=== PATIENT | male | born 1955 | race Caucasian/White ===

== ENCOUNTER → 2018-09-10 14:04 | Outpatient (CLI) | payer OTHER, SELFPAY ==
--- NOTE | 2018-09-10 | DI.US.S_ITS ---
PROCEDURE: US ABDOMEN LIMITED INDICATIONS: RIGHT HEPATIC CYST TECHNIQUE: Real-time focused scanning was performed of the abdomen, with image documentation. COMPARISON: [facility] Ultrasound, US, US ABDOMEN COMPLETE, 06/25/2018, 7:37. FINDINGS: Ultrasound examination of liver again shows 1.7 x 1.4 x 1.6 cm simple appearing cyst within anterior segment of right hepatic lobe, previously measures 1.6 x 1.4 x 1.5 cm in size. There is also a tiny calcification measures 3.5 mm in size in anterior inferior right hepatic lobe, previously measures 5 mm in size. No new hepatic lesion is seen. No intrahepatic or ductal dilatation. Liver is normal in size. IMPRESSION: 1. Patient's known minimally septated cyst in the anterior segment of right hepatic lobe is unchanged or minimally increased in size compared to earlier study. 2. Interval decrease in size of patient's known calcification in anterior inferior right hepatic lobe. Dictated by: Ronald Tinoco M.D. on 09/10/2018 at 15:54 Approved by: Ronald Tinoco M.D. on 09/10/2018 at 15:55
== END ==
PROVIDERS: PCP Internal Medicine; Visit Provider Internal Medicine
DX: K76.89 Other specified diseases of liver (principal)
CPT/HCPCS: 76705

== ENCOUNTER 2019-03-16 08:43 | Day surgery (SDC) | payer OTHER, SELFPAY ==
[2019-03-16 09:10] VITALS: BMI 30.4
[2019-03-16 09:14] VITALS: BP 136/85; PULSE 101; RESP 17; TEMP 36.4; O2SAT 97
[2019-03-16] MEDS: SODIUM CHLORIDE 0.9% 1,000 ML 200 ML IV (09:34)
--- NOTE | 2019-03-16 10:22 | PM.HP.1 ---
History of Present Illness Date Patient Seen: 03/16/19 Time Patient Seen: 10:22 Chief complaint: [id number] Narrative: Patient is 64 and here for a screening colonoscopy. This is his 1st exam. Patient History Medical History Arthritis (Acute) Carpal tunnel syndrome of right wrist (Acute) Fibromyalgia (Acute) GERD (gastroesophageal reflux disease) (Acute) Heart murmur (Acute) History of pneumonia (Acute) Right knee meniscal tear (Acute) Tear of meniscus of left knee (Acute) Wears glasses (Acute) Wears hearing aid in both ears (Acute) Social History household members: none Family & Social History Social History: household members none Never smoker Meds Home Medications Medication Instructions Recorded Confirmed Type acetaminophen [Tylenol Extra 3,000 mg PO DAILY 03/16/19 03/16/19 History Strength] aspirin [Aspirin Low Dose] 81 mg PO DAILY 03/16/19 03/16/19 History diclofenac sodium 75 mg PO BID 03/16/19 03/16/19 History diphenhydramine-acetaminophen 1 tab PO BEDTIME PRN 03/16/19 03/16/19 History [Tylenol PM Extra Strength] ibuprofen 2,000 mg PO DAILY 03/16/19 03/16/19 History omeprazole 40 mg PO BID 03/16/19 03/16/19 History Allergies Allergy/AdvReac Type Severity Reaction Status Date / Time amitriptyline AdvReac Mild slow Verified 03/16/19 09:17 stream, increased HR tramadol AdvReac Mild slow Verified 03/16/19 09:16 stream, increased HR desipramine AdvReac increased Verified 03/16/19 09:18 HR, sleeplessness, N/D, VINES Review of Systems Review of Systems All systems reviewed & are unremarkable except as noted in HPI and below Exam Vital Signs (past 8 hours): - 03/16/19 09:14 Temperature 97.5 F L Pulse Rate 101 H Respiratory Rate 17 Blood Pressure 136/85 Pulse Oximetry 97 Oxygen Delivery Method Room Air Narrative Exam Narrative: Pleasant cooperative patient no apparent distress. Lungs are clear to auscultation. No rales or rhonchi. Heart regular rate and rhythm no murmur gallop. Abdomen is soft nontender without mass. No obvious hernias. Patient is alert and oriented x3. Assessment & Plan Assessment & Plan narrative: The patient for a screening colonoscopy. I have discussed the procedure with them. Risks of bleeding, perforation which would necessitate major operation, failure to find remove all lesions, the potential tattoo were all discussed. All questions were answered. They wished to proceed.
--- NOTE | 2019-03-16 10:23 | PM.PREOP ---
Pre-operative Note Interval Note History & Physical reviewed/Exam performed by Physician: Yes Changes to H&P: No ASA Class (for procedural sedation): I
[2019-03-16] MEDS: fentaNYL 250 MCG/5 ML INJ IV (11:06)
[2019-03-16] MEDS: MIDAZOLAM 5 MG/5 ML VIAL IV (11:06)
--- NOTE | 2019-03-16 11:07 | PM.OP.ENDO ---
Operative Date/Time/Diagnoses Date of procedure: 03/16/19 Time of procedure: 11:07 Pre-op diagnosis: Screening exam. This is the patient's 1st colonoscopy. Post-op diagnosis: same Procedure & Clinicians Study performed: Colonoscopy Same procedure as scheduled: Yes Indications: Screening Surgeon: Peter Clark Procedure Notes SCOAP/Timeout: Performed Procedure in detail: The patient was placed in the left lateral decubitus position and underwent IV sedation directed by the surgeon consisting of fentanyl and Versed. Digital exam was unremarkable. I could not feel is prostate well.. The scope was inserted and advanced through the rectum into the sigmoid, descending, transverse, and ascending colon. No lesions were seen. The cecum was reached identified by the ileocecal valve and the appendiceal opening. The ileocecal valve was successfully cannulated. The terminal ileum was normal in appearance. The scope was gradually brought out. No Polyps were found. The scope ultimately was retroflexed in the rectum. The appearance was normal. The scope was removed and the patient tolerated the procedure well. Prep was excellent Scope withdrawal time: 6.5 minutes Sedation minutes: 22 Specimen(s): other (Normal exam) Complications: none Recommendations: Colonscopy in 10 years Follow up: as needed Disposition: PACU
[2019-03-16 11:11] VITALS: BP 120/82; PULSE 77; RESP 12; O2SAT 97
[2019-03-16 11:17] VITALS: BP 120/80; PULSE 82; RESP 12; O2SAT 96
[2019-03-16 11:20] VITALS: BP 124/84; PULSE 79; RESP 12; TEMP 36.3; O2SAT 95
[2019-03-16 11:25] VITALS: BP 112/70; PULSE 83; RESP 12; O2SAT 95
== END 2019-03-16 11:42 | disposition home or self-care (01) ==
PROVIDERS: PCP Internal Medicine; Visit Provider Specialist
PROC: 0DJD8ZZ Inspection of Lower Intestinal Tract, Via Natural or Artificial Opening Endoscopic (ICD-10-PCS; CPT 45378; principal; 2019-03-16 09:45)
DX: Z12.11 Encounter for screening for malignant neoplasm of colon (principal)
CPT/HCPCS: 45378; 99152; J2250; J3010

== ENCOUNTER → 2021-08-07 13:55 | Outpatient (CLI) | payer OTHER, SELFPAY | PROVIDERS: PCP Internal Medicine; Referring Provider Specialist; Visit Provider Specialist | DX: N40.0 Benign prostatic hyperplasia without lower urinary tract symptoms (principal); R97.20 Elevated prostate specific antigen [PSA] | CPT/HCPCS: 36415; 81002; 99214; G0103 ==

== ENCOUNTER → 2022-08-05 10:34 | Outpatient (CLI) | payer OTHER, SELFPAY ==
[2022-08-06 16:54] LABS: Prostate Specific Antigen 6.32 ng/mL (0.10-4.00)
== END ==
PROVIDERS: PCP Internal Medicine; Referring Provider Specialist; Visit Provider Specialist
DX: R97.20 Elevated prostate specific antigen [PSA] (principal)
CPT/HCPCS: 36415; 84153

== ENCOUNTER → 2023-01-02 08:45 | Outpatient (CLI) | payer OTHER, SELFPAY ==
[2023-01-05 07:47] LABS: PSA Free % 18.5 % (.); PSA, Total 5.9 ng/mL (0.0-4.0)
== END ==
PROVIDERS: PCP Internal Medicine; Referring Provider Specialist; Visit Provider Specialist
DX: R97.20 Elevated prostate specific antigen [PSA] (principal); N40.0 Benign prostatic hyperplasia without lower urinary tract symptoms
CPT/HCPCS: 36415; 84153; 84154

== ENCOUNTER → 2023-07-02 09:02 | Outpatient (CLI) | payer OTHER, SELFPAY ==
[2023-07-02 11:30] LABS: Prostate Specific Antigen 6.18 ng/mL (0.10-4.00)
== END ==
PROVIDERS: PCP Internal Medicine; Referring Provider Specialist; Visit Provider Specialist
DX: N40.0 Benign prostatic hyperplasia without lower urinary tract symptoms (principal); R97.20 Elevated prostate specific antigen [PSA]
CPT/HCPCS: 36415; 84153

== ENCOUNTER → 2023-12-22 09:18 | Outpatient (CLI) | payer OTHER, SELFPAY ==
[2023-12-24 08:22] LABS: PSA Free % 22.3 % (.); PSA, Total 4.3 ng/mL (0.0-4.0)
== END ==
PROVIDERS: PCP Internal Medicine; Referring Provider Specialist; Visit Provider Specialist
DX: R97.20 Elevated prostate specific antigen [PSA] (principal)
CPT/HCPCS: 36415; 84153; 84154

== ENCOUNTER → 2024-06-21 08:27 | Outpatient (CLI) | payer OTHER, SELFPAY | PROVIDERS: PCP Internal Medicine; Referring Provider Urology; Visit Provider Urology | DX: N40.0 Benign prostatic hyperplasia without lower urinary tract symptoms (principal); R97.20 Elevated prostate specific antigen [PSA] | CPT/HCPCS: 36415; 84153; 84154 ==

== ENCOUNTER → 2024-07-06 12:06 | Outpatient (CLI) | payer OTHER, SELFPAY ==
[2024-07-06 14:03] LABS: Estimated Glomerular Filt Rate > 60 mL/min (>60)
== END ==
PROVIDERS: PCP Internal Medicine; Referring Provider Urology; Visit Provider Urology
DX: R97.20 Elevated prostate specific antigen [PSA] (principal); N40.0 Benign prostatic hyperplasia without lower urinary tract symptoms
CPT/HCPCS: 36415; 82565

== ENCOUNTER → 2024-07-15 12:59 | Outpatient (CLI) | payer OTHER, SELFPAY ==
--- NOTE | 2024-07-15 13:01 | DI.MRI.S_ITS ---
PROCEDURE: MR PELVIS WO/W CON INDICATIONS: 69 y/o M w/ elevated PSA, please evaluate. TECHNIQUE: Coronal HASTE, axial T1 FSE with fat saturation, 3-plane nonbreath-hold T2 FSE. After the administration of contrast, dynamic axial, delayed axial and coronal VIBE or 2-D FLASH with fat saturation through the pelvis. Diffusion weighted imaging and ADC was performed. COMPARISON: [facility], CT, CT ABDOMEN PELVIS WITHOUT CONTRAST, 09/03/2022, 21:17. FINDINGS: Image quality: Diffusion weighted and dynamic contrast enhanced images are diagnostic. Prostate: Gland size is 3.5 x 4.5 x 3 cm; ellipsoid gland volume is 24.6 mL. PSA density is elevated at 0.32 Transitional zone heterogenous nodules are present, either well encapsulated or mostly encapsulated, compatible with PI-RADS 1 or 2 likely BPH nodules. Lentiform lesion at the anterior apex involving the anterior fibromuscular stroma measures 1.2 x 0.8 x 0.8 cm (5/9, 4/15). DWI score 4 (24/13). T2 score 4. DCE positive. PI-RADS 4. Due to the extent of capsular contact, micro capsular invasion is possible, although there is no measurable extraprostatic component. The seminal vesicles appear clear. Genitourinary system: Trabeculated bladder and mild wall thickening, possibly from chronic obstruction or cystitis. Bowel and peritoneum: No evidence of small bowel obstruction. No pathologic ascites Nodes and vessels: No aneurysmal vessel identified. No pathologic lymph nodes by size criteria Soft tissues: Small fat containing inguinal hernias. Possible small ganglion cyst anterior to the hip joints and involving the iliopsoas muscles. Bones: No suspicious osseous enhancing lesion IMPRESSION: PI-RADS 4 lesion in the anterior apex, involving the anterior fibromuscular stroma. If targeted biopsies are positive, extent of capsular contact raises concern for micro capsular invasion. Elevated PSA density. Gland volumes as above. No definite lymph nodes enlarged by size criteria or suspicious osseous lesions. Consider prostate PET-CT if targeted biopsies are positive. Other findings above. Dictated by: Quique Adam M.D. on 07/15/2024 at 14:25 Approved by: Quique Adam M.D. on 07/15/2024 at 14:31
== END ==
PROVIDERS: PCP Internal Medicine; Referring Provider Urology; Visit Provider Urology
DX: N42.9 Disorder of prostate, unspecified (principal); N32.89 Other specified disorders of bladder; R97.20 Elevated prostate specific antigen [PSA]; K40.90 Unilateral inguinal hernia, without obstruction or gangrene, not specified as recurrent
CPT/HCPCS: 72197; A9579

== ENCOUNTER 2024-09-23 11:45 | Emergency (ER) | payer OTHER, SELFPAY ==
[2024-09-23] VITALS (15 sets, daily range): BP systolic 97–132; BP diastolic 53–65; PULSE 69–106; RESP 15–20; TEMP 36.1–36.9; O2SAT 95–100; BMI 30.1
--- NOTE | 2024-09-23 11:44 | DI.RAD.S_ITS ---
PROCEDURE: XR CHEST 1V INDICATIONS: chest pain TECHNIQUE: One view of the chest was acquired. COMPARISON: None. FINDINGS: Surgical changes and devices: None. Lungs and pleura: Lungs are clear. No pleural effusions or pneumothorax. Mediastinum: Mediastinal contours appear normal. Heart size is normal. Bones and chest wall: No suspicious bony lesions. Overlying soft tissues appear unremarkable. IMPRESSION: No acute cardiopulmonary abnormality is seen. Dictated by: Alex Phillips M.D. on 09/23/2024 at 12:19 Approved by: Alex Phillips M.D. on 09/23/2024 at 12:19
--- NOTE | 2024-09-23 11:51 | EKG_ITS ---
[address] [address] Test Date: 2024-09-23 Pat Name: Jalen Zapata Department: Room: Gender: Male Remote Sensing Specialist: LORNA : 1955 Requested By: Order Number: [id number] Reading MD: Mario Simon Measurements Intervals Gause Rate: 73 P: 64 MN: 222 QRS: -30 QRSD: 86 T: 5 QT: 416 QTc: 458 Interpretive Statements Sinus rhythm with 1st degree AV block Left axis deviation Inferior infarct , age undetermined Electronically Signed On 09-23-2024 18:00:22 PST by Mario Simon
[2024-09-23 12:00] LABS: Add Manual Diff / Slide Review NO; Basophils Absolute Auto 0 /uL (0-100); Basophils Percent Auto 0.3 % (0-2); Eosinophils Absolute Auto 100 /uL (0-450); Eosinophils Percent Auto 0.8 % (2-4); Hematocrit 40.5 % (41-53); Hemoglobin 13.7 g/dL (13.5-17.5); Lymphocytes Absolute Auto 600 /uL (1100-4500); Lymphocytes Percent Auto 8.8 % (25-40); Mean Corpuscular HGB Conc 33.9 % (30-36); Mean Corpuscular Hemoglobin 31.1 PG (26-34); Mean Corpuscular Volume 91.9 fL (80-100); Monocytes Absolute Auto 500 /uL (0-900); Monocytes Percent Auto 6.9 % (3-14); Neutrophils Absolute Auto 5800 /uL (1500-7000); Neutrophils Percent Auto 83.2 % (50-75); Platelet Count 226 X10^3/uL (150-400); Red Blood Cell Count 4.41 X10^6/uL (4.5-5.9); Red Cell Distribution Width 13.2 % (11.6-14.8)
[2024-09-23 12:05] LABS: INR 1.1 (0.9-1.3); Prothrombin Time 12.8 SECONDS (9.4-12.5)
[2024-09-23 12:08] LABS: PTT Partial Thromboplastin Tim 28 SECONDS (25.1-36.5)
[2024-09-23 12:10] LABS: Alanine Aminotransferase 25 IU/L (<50); Albumin 4.4 g/dL (3.5-5.0); Albumin Globulin Ratio 1.6 (1.0-2.8); Alkaline Phosphatase 91 U/L (38-126); Aspartate Aminotransferase 31 IU/L (17-59); BUN Creatinine Ratio 17.2 (6-22); Bilirubin Total 0.8 mg/dL (0.2-1.3); Blood Urea Nitrogen 23 mg/dL (9-20); Calcium 9.6 mg/dL (8.4-10.2); Carbon Dioxide 24 mmol/L (22-32); Chloride 101 mmol/L (98-107); Creatine Kinase 96 U/L (55-170); Estimated Glomerular Filt Rate 57 mL/min (>60); Globulin 2.7 g/dL (1.7-4.1); Glucose 149 mg/dL (80-110); HEMOLYSIS < 15 (0-50); Lipase 86 U/L (23-300); Magnesium 1.7 mg/dL (1.6-2.3); Potassium 4.4 mmol/L (3.4-5.1); Sodium 135 mmol/L (137-145); Total Protein 7.1 g/dL (6.3-8.2)
[2024-09-23 12:21] LABS: NT-proBNP (BNP-Adult 18+) 1950 pg/mL (<125); Troponin I 0.044 ng/mL (0.01-0.034)
--- NOTE | 2024-09-23 12:21 | ED.SYNCOPE ---
HPI - Syncope General Chief Complaint: Syncope Stated Complaint: Near syncope at urlogy Time Seen by Provider: 09/23/24 12:21 Mode of arrival: EMS History of Present Illness HPI narrative: 69-year-old male history of hyperlipidemia comes into the ED from Urology via EMS for evaluation of presyncopal symptoms. According to the patient he was having a biopsy at the urology office, however during the procedure started feeling lightheaded and dizzy. He states that he has a history of this,, states that he also fasted prior to going to his procedure as instructed therefore he believes that this is what is causing his symptoms. He currently does not have any headache visual disturbances chest pain shortness breath fever chills nausea vomiting abdominal pain or any other GI/ symptoms at this time. He states that he was not having any chest pain shortness of breath prior or after the event. Related Data Home Medications Medication Instructions Recorded Confirmed famotidine 10 mg tablet (Acid 10 mg PO DAILY 01/15/23 09/23/24 Residential Therapist (famotidine)) multivitamin 1 tab PO DAILY 01/15/23 09/23/24 acetaminophen 325 mg capsule 650 mg PO Q6H PRN 01/01/24 09/23/24 atorvastatin 20 mg tablet 20 mg PO DAILY 01/01/24 09/23/24 Previous Rx's Medication Instructions Recorded levofloxacin 750 mg tablet 750 mg PO DAILY #3 tabs 09/06/24 Allergies Allergy/AdvReac Type Severity Reaction Status Date / Time amitriptyline AdvReac Mild slow Verified 09/23/24 11:46 stream, increased HR tramadol AdvReac Mild slow Verified 09/23/24 11:46 stream, increased HR naproxen AdvReac Unknown Verified 09/23/24 11:46 omeprazole AdvReac Unknown Verified 09/23/24 11:46 amlodipine AdvReac Verified 09/23/24 11:46 desipramine AdvReac increased Verified 09/23/24 11:46 HR, sleeplessness, N/D, VINES diclofenac AdvReac Verified 09/23/24 11:46 duloxetine AdvReac Verified 09/23/24 11:46 gabapentin AdvReac Verified 09/23/24 11:46 ranitidine AdvReac Verified 09/23/24 11:46 trazodone AdvReac Verified 09/23/24 11:46 Review of Systems Review of Systems Narrative: General: Denies fever, chills, weight loss HEENT: Denies headache, eye drainage, eye irritation, head trauma, sore throat, voice change Cardiovascular: Denies any chest pain, palpitations, shortness of breath, tachycardia Respiratory: Denies any shortness of breath, cough, wheeze, stridor GI/: Denies any abdominal pain, nausea, vomiting, diarrhea, bright red blood per rectum, melanotic stools, urinary frequency, urinary retention, dysuria, hematuria MSK: Denies any joint pain, muscle pains, swelling Skin: Denies any rashes, lesions, discoloration Neuro: Positive lightheadedness, denies dizziness, fainting, weakness Psych: Denies SI/HI Patient History Medical History Elevated PSA BPH loc w/o ur obs/LUTS Tear of meniscus of left knee Right knee meniscal tear Carpal tunnel syndrome of right wrist Wears hearing aid in both ears Wears glasses Fibromyalgia GERD (gastroesophageal reflux disease) Arthritis Heart murmur History of pneumonia Social History household members: none Smoking Status: Never smoker Smoking Status: Never smoker Exam Narrative Exam Narrative: General: Cooperative, comfortable, well-developed, not in acute distress HEENT: Normocephalic, atraumatic, PERRLA, normal sclera, eyelids normal, Neck: Active full range of motion, atraumatic Chest: Normal to inspection, negative crepitus, no overlying erythema ecchymosis Respiratory: Normal respiratory effort, not in acute respiratory distress, clear to auscultation bilaterally negative cough, wheeze, tachypnea, rhonchi, rales Cardiology: Regular rate rhythm negative gallop, murmur, rubs GI/: Normal to inspection, soft, nonrigid, no tenderness to palpation, exam deferred MSK: Full range of active range of motion of all 4 extremities, atraumatic Skin: No rashes lesions noted Neuro: Alert awake oriented x3, moves all 4 extremities spontaneously, cranial nerves intact, able to answer all questions appropriately follows commands appropriately, NIH of 0 Psych: Cooperative, negative suicidal or homicidal ideations Initial Vital Signs Initial Vital Signs: Vital Signs Temperature 96.9 F L 09/23/24 11:46 Pulse Rate 69 09/23/24 11:46 Respiratory Rate 15 09/23/24 11:46 Blood Pressure 106/61 09/23/24 11:46 Pulse Oximetry 100 09/23/24 11:46 Oxygen Delivery Method Room Air 09/23/24 11:46 Course Orders Ordered: ED Orders 09/23/24 11:44 XR chest 1V Stat EKG-12 Lead Stat 09/23/24 11:51 Complete Blood Count AUTO DIFF Stat Comprehensive Metabolic Panel Stat Lipase Stat Magnesium Stat NT-proBNP (BNP-Adult 18+) Stat PTT Partial Thromboplastin Emilio Stat Prothrombin Time INR Stat Troponin & CK Cardiac Panel Stat 09/23/24 14:00 Trop I [Troponin I] Routine 09/23/24 14:30 Urinalysis and Microscopic Stat 09/23/24 15:13 CT head/brain wo con Stat Discontinued Medications Sodium Chloride (Normal Saline 0.9%) 1,000 mls @ 1,000 mls/hr IV BOLUS ONE Stop: 09/23/24 13:33 Last Infusion: 09/23/24 13:41 Dose: Infused Documented By: Admin: 09/23/24 12:39 Dose: 1,000 mls/hr Documented By: ASHLEY Vital Signs Vital signs: Vital Signs - 8 hr 09/23/24 11:46 09/23/24 11:49 09/23/24 12:00 Temperature 96.9 F L Pulse Rate 69 72 75 Pulse Rate [Orthostatic Lying] Pulse Rate [Orthostatic Sitting] Pulse Rate [Orthostatic Standing] Respiratory Rate 15 Blood Pressure 106/61 Blood Pressure [Orthostatic Lying] Blood Pressure [Orthostatic Sitting] Blood Pressure [Orthostatic Standing] Pulse Oximetry 100 98 99 Oxygen Delivery Method Room Air 09/23/24 12:30 09/23/24 12:46 09/23/24 12:46 Temperature Pulse Rate 77 74 Pulse Rate [Orthostatic Lying] Pulse Rate [Orthostatic Sitting] Pulse Rate [Orthostatic Standing] Respiratory Rate 18 16 Blood Pressure 104/58 L 97/53 L Blood Pressure [Orthostatic Lying] Blood Pressure [Orthostatic Sitting] Blood Pressure [Orthostatic Standing] Pulse Oximetry 99 99 Oxygen Delivery Method Room Air Room Air 09/23/24 13:00 09/23/24 13:00 09/23/24 13:30 Temperature Pulse Rate 74 84 Pulse Rate [Orthostatic Lying] Pulse Rate [Orthostatic Sitting] Pulse Rate [Orthostatic Standing] Respiratory Rate 16 16 Blood Pressure 105/56 L Blood Pressure [Orthostatic Lying] Blood Pressure [Orthostatic Sitting] Blood Pressure [Orthostatic Standing] Pulse Oximetry 95 100 Oxygen Delivery Method Room Air Room Air 09/23/24 13:30 09/23/24 13:50 09/23/24 13:52 Temperature 98.5 F Pulse Rate 80 Pulse Rate [Orthostatic Lying] 80 Pulse Rate [Orthostatic Sitting] 95 H Pulse Rate [Orthostatic Standing] 106 H Respiratory Rate 18 Blood Pressure 130/65 Blood Pressure [Orthostatic Lying] 129/61 Blood Pressure [Orthostatic Sitting] 124/56 L Blood Pressure [Orthostatic Standing] 116/61 Pulse Oximetry 100 Oxygen Delivery Method 09/23/24 13:52 09/23/24 13:54 09/23/24 13:54 Temperature Pulse Rate 95 H Pulse Rate [Orthostatic Lying] Pulse Rate [Orthostatic Sitting] Pulse Rate [Orthostatic Standing] Respiratory Rate 20 Blood Pressure 129/61 124/56 L Blood Pressure [Orthostatic Lying] Blood Pressure [Orthostatic Sitting] Blood Pressure [Orthostatic Standing] Pulse Oximetry 100 Oxygen Delivery Method 09/23/24 13:55 09/23/24 13:55 09/23/24 14:00 Temperature Pulse Rate 106 H 88 Pulse Rate [Orthostatic Lying] Pulse Rate [Orthostatic Sitting] Pulse Rate [Orthostatic Standing] Respiratory Rate 16 19 Blood Pressure 116/62 Blood Pressure [Orthostatic Lying] Blood Pressure [Orthostatic Sitting] Blood Pressure [Orthostatic Standing] Pulse Oximetry 100 100 Oxygen Delivery Method Room Air 09/23/24 14:00 09/23/24 14:43 09/23/24 14:43 Temperature 97.9 F Pulse Rate 85 Pulse Rate [Orthostatic Lying] Pulse Rate [Orthostatic Sitting] Pulse Rate [Orthostatic Standing] Respiratory Rate 20 Blood Pressure 115/63 132/65 Blood Pressure [Orthostatic Lying] Blood Pressure [Orthostatic Sitting] Blood Pressure [Orthostatic Standing] Pulse Oximetry 99 Oxygen Delivery Method Room Air 09/23/24 15:00 09/23/24 15:00 Temperature Pulse Rate 81 Pulse Rate [Orthostatic Lying] Pulse Rate [Orthostatic Sitting] Pulse Rate [Orthostatic Standing] Respiratory Rate 17 Blood Pressure 127/64 Blood Pressure [Orthostatic Lying] Blood Pressure [Orthostatic Sitting] Blood Pressure [Orthostatic Standing] Pulse Oximetry 98 Oxygen Delivery Method Room Air MDM - Syncope Differential Diagnosis Differential diagnosis: Likely other (CVA, electrolyte abnormality, urinary tract infection) Lab Data 09/23/24 11:51 09/23/24 11:51 Labs: Lab Results 09/23/24 09/23/24 09/23/24 Range/Units 11:51 14:00 14:30 WBC 7.0 (4.5-11.0) X10^3/uL RBC 4.41 L (4.5-5.9) X10^6/uL Hgb 13.7 (13.5-17.5) g/dL Hct 40.5 L (41-53) % MCV 91.9 (80-100) fL MCH 31.1 (26-34) PG MCHC 33.9 (30-36) % RDW 13.2 (11.6-14.8) % Plt Count 226 (150-400) X10^3/uL Neut % (Auto) 83.2 H (50-75) % Lymph % (Auto) 8.8 L (25-40) % Centre % (Auto) 6.9 (3-14) % Eos % (Auto) 0.8 L (2-4) % Baso % (Auto) 0.3 (0-2) % Neut # (Auto) 5800 (0228-3616) /uL Lymph # (Auto) 600 L (1593-5053) /uL Centre # (Auto) 500 (0-900) /uL Eos # (Auto) 100 (0-450) /uL Baso # (Auto) 0 (0-100) /uL PT 12.8 H (9.4-12.5) SECONDS INR 1.1 (0.9-1.3) APTT 28 (25.1-36.5) SECONDS Sodium 135 L (137-145) mmol/L Potassium 4.4 (3.4-5.1) mmol/L Chloride 101 (98-107) mmol/L Carbon Dioxide 24 (22-32) mmol/L BUN 23 H (9-20) mg/dL Creatinine 1.34 H (0.66-1.25) mg/dL Estimated GFR 57 L (>60) mL/min BUN/Creatinine Ratio 17.2 (6-22) Glucose 149 H (80-110) mg/dL Calcium 9.6 (8.4-10.2) mg/dL Magnesium 1.7 (1.6-2.3) mg/dL Total Bilirubin 0.8 (0.2-1.3) mg/dL AST 31 (17-59) IU/L ALT 25 (<50) IU/L Alkaline Phosphatase 91 (38-126) U/L Total Creatine Kinase 96 (55-170) U/L Troponin I 0.044 H 0.045 H (0.01-0.034) ng/mL NT-Pro-B Natriuret Pep 1950 H (<125) pg/mL Total Protein 7.1 (6.3-8.2) g/dL Albumin 4.4 (3.5-5.0) g/dL Globulin 2.7 (1.7-4.1) g/dL Albumin/Globulin Ratio 1.6 (1.0-2.8) Lipase 86 (23-300) U/L Urine Color Red Urine Appearance Cloudy Urine pH 6.0 (4.5-8.0) Ur Specific [place] 1.025 (1.000-1.035) Urine Protein 2+ H (Negative) Urine Glucose (UA) Negative (Negative) g/dL Urine Ketones Trace H (NEGATIVE) Urine Occult Blood 1+ H (Negative) Urine Nitrate Negative (Negative) Urine Bilirubin Negative (NEGATIVE) Urine Urobilinogen 0.2 (0.2) E.U./dL Ur Leukocyte Esterase Negative (NEGATIVE) Urine RBC 30-100/hpf H (0-5/HPF) Urine WBC 0-1/hpf (0-5/HPF) Ur Squamous Epith Cells None seen (0-5/HPF) Urine Bacteria None seen (None) Ur Culture Indicated? Cult not indicated Vol Urine Centrifuged 10ml (spun) Imaging Data Chest x-ray: Radiologist's Impression: [address] [address] XRay Report Signed Patient: Jalen Zapata MR#: [id number] : 1955 Acct:[id number] Age/Sex: 69 / M Date of Service: 09/23/24 Loc: ED Accession Number: [id number] Procedure: XR chest 1V Ordering Provider: Clarence Reid D.O. PROCEDURE: XR CHEST 1V INDICATIONS: chest pain TECHNIQUE: One view of the chest was acquired. COMPARISON: None. FINDINGS: Surgical changes and devices: None. Lungs and pleura: Lungs are clear. No pleural effusions or pneumothorax. Mediastinum: Mediastinal contours appear normal. Heart size is normal. Bones and chest wall: No suspicious bony lesions. Overlying soft tissues appear unremarkable. IMPRESSION: No acute cardiopulmonary abnormality is seen. ECG Data Interpretation: EKG interpreted ED physician sinuses 73 beats per minute first-degree AV block noted QTC 458, normal axis, nonspecific ST changes, no STEMI MDM Narrative Medical decision making narrative: 69-year-old male history of hyperlipidemia comes into the ED from Urology via EMS for evaluation of presyncopal symptoms. According to the patient he was having a biopsy at the urology office, however during the procedure started feeling lightheaded and dizzy. He states that he has a history of this,, states that he also fasted prior to going to his procedure as instructed therefore he believes that this is what is causing his symptoms. He currently does not have any headache visual disturbances chest pain shortness breath fever chills nausea vomiting abdominal pain or any other GI/ symptoms at this time. He states that he was not having any chest pain shortness of breath prior or after the event. Patient had normal EKG , initial troponin 0.044 with repeat 0.045 patient remains completely asymptomatic no chest pain no shortness a breath. He states that whenever he has any kind of procedures he always has these ?vasovagal syncope. I informed him that I would like to repeat the troponin again, as well as obtain a CT scan of the head to rule out any other acute findings, however he states that he feels completely fine. He stated that he would rather follow up with his yardage control operator forming as well as his other specialists in an outpatient setting. Patient states that he would return if he feels any chest pain shortness breath or presyncopal syncopal symptoms. Strict return precautions were given, discussion risks benefits with the patient was given he would rather be discharged home, patient will be discharged home with outpatient follow up 1516: Call discussed with Dr. Tinoco (cardiology) states that the troponin is not significantly elevated can see these elevations after procedures such as prostate biopsy, would not recommend any interventions at this time no heparinization, states that he would be able to follow up outpatient with his yardage control operator forming in an outpatient setting. Discharge Plan Departure Patient Disposition: Home Clinical Impression: Syncope Instructions: DI for Syncope in Adults (Fainting) Activity Restrictions/Additional Instructions: Please follow up with your yardage control operator forming in the next 2 days Please read the discharge instructions sheet carefully and bring all papers to all doctor follow-up visits, as it may contain information that your doctor may want to see. Disease processes change and evolve, if your symptoms worsen or if you develop any new symptoms that are concerning to you please return for evaluation. Your evaluation today does not show any evidence of any life-threatening/serious illnesses requiring admission to the hospital or surgery. Please follow-up with your doctor for re-evaluation in approximately 1 day. Seek immediate medical attention for any worrisome symptoms. *If you do not have a primary care provider please contact the [facility] Resource line at [phone]. They will ask some questions about your medical history and help get you set up with a doctor in the community. Prescriptions: No Action levofloxacin 750 mg tablet 750 mg PO DAILY Qty: 3 0RF Rx Instructions: Take one tablet by mouth the day before the biopsy, the day of, and the day after the biopsy. famotidine [Acid Residential Therapist (famotidine)] 10 mg tablet 10 mg PO DAILY multivitamin Tablet 1 tab PO DAILY acetaminophen 325 mg capsule 650 mg PO Q6H PRN atorvastatin 20 mg tablet 20 mg PO DAILY Referrals: Benita Gomes MD [Primary Care Provider] - Stand Alone Forms: Patient Portal/API/Survey
[2024-09-23] MEDS: SODIUM CHLORIDE 0.9% 1,000 ML 1000 ML IV (12:39)
--- NOTE | 2024-09-23 14:28 | PC.NURSE ---
ambulated independent, steady gate, no assistance from staff, using personal crutches w/knee braces in place bilateral. Up to restroom to attempt to urinate post IV fluids and urology procedure on prostate this AM in urology office w/ Dr Alonso. 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 Patient urinated 100 ml of frankly bloody urine, no clots noted, and he reports it is to be expected post procedure.
[2024-09-23 14:33] LABS: Troponin I 0.045 ng/mL (0.01-0.034)
[2024-09-23 14:57] LABS: Appearance Urine UA CLOUDY; Bilirubin Urine UA NEGATIVE (NEGATIVE); Color Urine UA RED; Glucose Urine UA NEGATIVE (Negative); Ketones Urine UA TRACE (NEGATIVE); Leukocyte Esterase Urine UA NEGATIVE (NEGATIVE); Nitrite Urine UA NEGATIVE (Negative); Occult Blood Urine UA 1+ (Negative); Protein Urine UA 2+ (Negative); Specific Gravity Urine UA 1.025 (1.000-1.035); Urobilinogen Urine UA 0.2 E.U./dL (0.2)
[2024-09-23 15:06] LABS: Bacteria Urine None Seen; Culture Indicated Urine Cult Not Indicated; RBC Urine 30-100/HPF (0-5/HPF); Squamous Epithelial Cell Urine None Seen (0-5/HPF); Urine Volume 10mL (spun); WBC Urine 0-1/HPF (0-5/HPF)
== END 2024-09-23 16:00 | disposition home or self-care (01) ==
PROVIDERS: Emergency Provider Student in an Organized Health Care Education/Training Program; PCP Internal Medicine
DX: R55 Syncope and collapse (principal); E78.5 Hyperlipidemia, unspecified; R42 Dizziness and giddiness; R07.9 Chest pain, unspecified; I44.0 Atrioventricular block, first degree; R97.20 Elevated prostate specific antigen [PSA]; N40.0 Benign prostatic hyperplasia without lower urinary tract symptoms
CPT/HCPCS: 36415; 55700; 71045; 76872; 76942; 80053; 81001; 82550; 83690; 83735; 83880; 84484; 85025; 85610; 85730; 93005; 96360; 99213; 99284

== ENCOUNTER 2024-09-26 12:23 | Inpatient (IN) | payer OTHER, SELFPAY ==
[2024-09-26] VITALS (40 sets, daily range): BP systolic 87–155; BP diastolic 45–95; PULSE 69–147; RESP 10–42; TEMP 36.9–39.5; O2SAT 94–99; BMI 25.0
--- NOTE | 2024-09-26 12:29 | EKG_ITS ---
[address] [address] Test Date: 2024-09-26 Pat Name: Jalen Zapata Department: Room: Gender: Male Hel[employer]: LORNA : 1955 Requested By: Order Number: [id number] Reading MD: Mario Simon Measurements Intervals [place] Rate: 102 P: 63 SC: 200 QRS: -28 QRSD: 86 T: 3 QT: 346 QTc: 450 Interpretive Statements Sinus tachycardia with premature supraventricular complexes Low voltage QRS Septal infarct , age undetermined Electronically Signed On 09-27-2024 9:45:39 PST by Mario Simon
--- NOTE | 2024-09-26 12:30 | ED.WEAKNESS ---
HPI - Weakness General Chief complaint: Weakness Stated complaint: Weakness Time Seen by Provider: 09/26/24 12:28 History of Present Illness HPI Narrative: 69-year-old male with history of hyperlipidemia, BPH presents by EMS from home for chills, body aches, and 1 episode of stool incontinence. Three days ago patient underwent prostate biopsy with Dr. Alonso for lesion seen on MRI. After his procedure he had a syncopal episode and was evaluated in the emergency department. Patient was discharged home after an unremarkable workup. Patient states that until today he has felt in good state of health. Today he began to experience body aches, severe chills, and general unwell feeling. While shivering at home he had an episode where his bowels were uncontrolled and he decided to call 911. On arrival patient appeared pale, with rigors present. Also noted to be tachycardic and tachypneic. Related Data Home Medications Medication Instructions Recorded Confirmed famotidine 10 mg tablet (Acid 10 mg PO DAILY 01/15/23 09/23/24 Pad Extraction Tender (famotidine)) multivitamin 1 tab PO DAILY 01/15/23 09/23/24 acetaminophen 325 mg capsule 650 mg PO Q6H PRN 01/01/24 09/23/24 atorvastatin 20 mg tablet 20 mg PO DAILY 01/01/24 09/23/24 Previous Rx's Medication Instructions Recorded levofloxacin 750 mg tablet 750 mg PO DAILY #3 tabs 09/06/24 Allergies Allergy/AdvReac Type Severity Reaction Status Date / Time amitriptyline AdvReac Mild slow Verified 09/23/24 11:46 stream, increased HR tramadol AdvReac Mild slow Verified 09/23/24 11:46 stream, increased HR naproxen AdvReac Unknown Verified 09/23/24 11:46 omeprazole AdvReac Unknown Verified 09/23/24 11:46 amlodipine AdvReac Verified 09/23/24 11:46 desipramine AdvReac increased Verified 09/23/24 11:46 HR, sleeplessness, N/D, VINES diclofenac AdvReac Verified 09/23/24 11:46 duloxetine AdvReac Verified 09/23/24 11:46 gabapentin AdvReac Verified 09/23/24 11:46 ranitidine AdvReac Verified 09/23/24 11:46 trazodone AdvReac Verified 09/23/24 11:46 Patient History Medical History Elevated PSA BPH loc w/o ur obs/LUTS Tear of meniscus of left knee Right knee meniscal tear Carpal tunnel syndrome of right wrist Wears hearing aid in both ears Wears glasses Fibromyalgia GERD (gastroesophageal reflux disease) Arthritis Heart murmur History of pneumonia Social History household members: none Smoking Status: Never smoker Smoking Status: Never smoker Exam Initial Vital Signs Initial Vital Signs: Vital Signs Pulse Rate 69 09/26/24 12:30 Respiratory Rate 32 H 09/26/24 12:30 Const: Awake, alert, ill-appearing, rigors Cardiac: Tachycardia, regular rhythm RESP: Tachypnea, clear bilaterally, no wheezing GI: Soft, nontender, nondistended Rectal: [employer] present, tone intact, no perineal tenderness Skin: Warm, Dry, intact, no rashes Neuro: AO x3, CN II-XII grossly intact, moves all extremities Course Orders Ordered: ED Orders 09/26/24 11:23 CBC Auto Diff [Complete Blood Count AUTO DIFF] Stat Lactate (Lactic Acid) Stat PT [Prothrombin Time INR] Stat 09/26/24 12:29 EKG-12 Lead Stat 09/26/24 12:58 CMP [Comprehensive Metabolic Panel] Stat Procalcitonin Stat 09/26/24 13:00 Respiratory Panel (Film Array) Stat 09/26/24 13:38 Blood Culture Stat 09/26/24 14:27 UA Complete [Urinalysis and Microscopic] Stat Urine Culture Stat Sodium Chloride (Normal Saline 0.9%) 1,000 mls @ 1,000 mls/hr IV BOLUS ONE Stop: 09/26/24 15:48 Last Admin: 09/26/24 14:50 Dose: 1,000 mls/hr Documented By: DM Discontinued Medications Piperacillin Sod/Tazobactam (Sod 4.5 gm/ Sodium Chloride) 100 mls @ 200 mls/hr IV NOW ONE Stop: 09/26/24 13:01 Last Infusion: 09/26/24 14:29 Dose: Infused Documented By: Admin: 09/26/24 13:52 Dose: 200 mls/hr Documented By: [facility] Sodium Chloride (Normal Saline 0.9%) 1,000 mls @ 1,000 mls/hr IV BOLUS ONE Stop: 09/26/24 14:16 Last Infusion: 09/26/24 14:48 Dose: Infused Documented By: Admin: 09/26/24 13:28 Dose: 1,000 mls/hr Documented By: HECTOR Acetaminophen (Ofirmev) 1,000 mg in 100 mls @ 400 mls/hr IV NOW ONE Stop: 09/26/24 14:00 Last Infusion: 09/26/24 14:59 Dose: Infused Documented By: Admin: 09/26/24 14:32 Dose: 400 mls/hr Documented By: ARCHANA Vital Signs Vital signs: Vital Signs - 8 hr 09/26/24 12:30 09/26/24 12:50 09/26/24 13:00 Temperature 98.4 F Pulse Rate 69 147 H 145 H Respiratory Rate 32 H 30 H 42 H Blood Pressure Pulse Oximetry Oxygen Delivery Method Oxygen Flow Rate 09/26/24 13:14 09/26/24 13:14 09/26/24 13:15 Temperature Pulse Rate 126 H Respiratory Rate 24 Blood Pressure 139/81 155/95 H Pulse Oximetry 96 Oxygen Delivery Method Oxygen Flow Rate 2 09/26/24 13:15 09/26/24 13:30 09/26/24 13:30 Temperature Pulse Rate 125 H 119 H Respiratory Rate 25 H 16 Blood Pressure 127/64 Pulse Oximetry 95 98 Oxygen Delivery Method Nasal Cannula Nasal Cannula Oxygen Flow Rate 5 5 09/26/24 13:45 09/26/24 13:45 09/26/24 14:00 Temperature Pulse Rate 115 H Respiratory Rate 17 Blood Pressure 115/59 L 102/58 L Pulse Oximetry 98 Oxygen Delivery Method Nasal Cannula Oxygen Flow Rate 2 09/26/24 14:00 09/26/24 14:15 09/26/24 14:15 Temperature Pulse Rate 113 H 109 H Respiratory Rate 10 L 25 H Blood Pressure 111/58 L Pulse Oximetry 99 98 Oxygen Delivery Method Nasal Cannula Oxygen Flow Rate 2 09/26/24 14:30 09/26/24 14:30 09/26/24 14:42 Temperature 103.1 F H Pulse Rate 109 H 109 H Respiratory Rate 27 H 23 Blood Pressure 110/59 L Pulse Oximetry 97 97 Oxygen Delivery Method Nasal Cannula Oxygen Flow Rate 2 09/26/24 14:42 09/26/24 14:45 09/26/24 14:45 Temperature Pulse Rate 108 H Respiratory Rate 21 Blood Pressure 98/52 L 87/45 L Pulse Oximetry 94 Oxygen Delivery Method Room Air Oxygen Flow Rate 09/26/24 14:57 09/26/24 14:58 Temperature Pulse Rate 106 H Respiratory Rate 24 Blood Pressure 94/52 L Pulse Oximetry 97 Oxygen Delivery Method Nasal Cannula Oxygen Flow Rate 2 MDM - Weakness Lab Data 09/26/24 11:23 09/26/24 12:58 Labs: Lab Results 09/26/24 09/26/24 09/26/24 Range/Units 11:23 12:58 13:00 WBC 9.3 (4.5-11.0) X10^3/uL RBC 4.34 L (4.5-5.9) X10^6/uL Hgb 13.5 (13.5-17.5) g/dL Hct 40.2 L (41-53) % MCV 92.5 (80-100) fL MCH 31.1 (26-34) PG MCHC 33.7 (30-36) % RDW 13.9 (11.6-14.8) % Plt Count 155 (150-400) X10^3/uL Neut % (Auto) 97.1 H (50-75) % Lymph % (Auto) 1.6 L (25-40) % [place] % (Auto) 1.2 L (3-14) % Eos % (Auto) 0.1 L (2-4) % Baso % (Auto) 0.0 (0-2) % Neut # (Auto) 9100 H (9262-7263) /uL Lymph # (Auto) 200 L (7965-8301) /uL [place] # (Auto) 100 (0-900) /uL Eos # (Auto) 0 (0-450) /uL Baso # (Auto) 0 (0-100) /uL PT 14.5 H (9.4-12.5) SECONDS INR 1.3 (0.9-1.3) Sodium 133 L (137-145) mmol/L Potassium 3.7 (3.4-5.1) mmol/L Chloride 97 L (98-107) mmol/L Carbon Dioxide 21 L (22-32) mmol/L BUN 30 H (9-20) mg/dL Creatinine 1.39 H (0.66-1.25) mg/dL Estimated GFR 54 L (>60) mL/min BUN/Creatinine Ratio 21.6 (6-22) Glucose 119 H (80-110) mg/dL Lactate 4.5 H* (0.7-2.1) mmol/L Calcium 9.4 (8.4-10.2) mg/dL Total Bilirubin 1.3 (0.2-1.3) mg/dL AST 70 H (17-59) IU/L ALT 45 (<50) IU/L Alkaline Phosphatase 98 (38-126) U/L Total Protein 7.5 (6.3-8.2) g/dL Albumin 4.6 (3.5-5.0) g/dL Globulin 2.9 (1.7-4.1) g/dL Albumin/Globulin Ratio 1.6 (1.0-2.8) Procalcitonin 40.9 H (<0.5) ng/mL Urine Color Urine Appearance Urine pH (4.5-8.0) Ur Specific [place] (1.000-1.035) Urine Protein (Negative) Urine Glucose (UA) (Negative) g/dL Urine Ketones (NEGATIVE) Urine Occult Blood (Negative) Urine Nitrate (Negative) Urine Bilirubin (NEGATIVE) Urine Urobilinogen (0.2) E.U./dL Ur Leukocyte Esterase (NEGATIVE) Urine RBC (0-5/HPF) Urine WBC (0-5/HPF) Ur Squamous Epith Cells (0-5/HPF) Urine Bacteria (None) Ur Culture Indicated? Vol Urine Centrifuged Chlamy pneumoniae PCR Not detected (Not Detect) Adenovirus (PCR) Not detected (Not Detect) B. pertussis DNA (PCR) Not detected (Not Detect) B.parapertussis DNA PCR Not detected (Not Detecte) Coronavirus OC43 (PCR) Not detected (Not Detect) Coronavirus HKU1 (PCR) Not detected (Not Detect) Coronavirus 229E (PCR) Not detected (Not Detect) SARS-CoV-2 (PCR) Not detected (Not Detecte) Coronavirus NL63 (PCR) Not detected (Not Detect) Human Metapneumovir PCR Not detected (Not Detect) Influenza Type A (PCR) Not detected (Not Detect) Influenza Type B (PCR) Not detected (Not Detect) M. pneumoniae (PCR) Not detected (Not Detect) Parainfluenza 1 (PCR) Not detected (Not Detect) Parainfluenza 2 (PCR) Not detected (Not Detect) Parainfluenza 3 (PCR) Not detected (Not Detect) Parainfluenza 4 (PCR) Not detected (Not Detect) RSV (PCR) Not detected (Not Detect) Entero/Rhino (PCR) Not detected (Not Detect) 09/26/24 09/26/24 Range/Units 14:27 14:35 WBC (4.5-11.0) X10^3/uL RBC (4.5-5.9) X10^6/uL Hgb (13.5-17.5) g/dL Hct (41-53) % MCV (80-100) fL MCH (26-34) PG MCHC (30-36) % RDW (11.6-14.8) % Plt Count (150-400) X10^3/uL Neut % (Auto) (50-75) % Lymph % (Auto) (25-40) % [place] % (Auto) (3-14) % Eos % (Auto) (2-4) % Baso % (Auto) (0-2) % Neut # (Auto) (7600-3003) /uL Lymph # (Auto) (3692-6023) /uL [place] # (Auto) (0-900) /uL Eos # (Auto) (0-450) /uL Baso # (Auto) (0-100) /uL PT (9.4-12.5) SECONDS INR (0.9-1.3) Sodium (137-145) mmol/L Potassium (3.4-5.1) mmol/L Chloride (98-107) mmol/L Carbon Dioxide (22-32) mmol/L BUN (9-20) mg/dL Creatinine (0.66-1.25) mg/dL Estimated GFR (>60) mL/min BUN/Creatinine Ratio (6-22) Glucose (80-110) mg/dL Lactate 2.5 H (0.7-2.1) mmol/L Calcium (8.4-10.2) mg/dL Total Bilirubin (0.2-1.3) mg/dL AST (17-59) IU/L ALT (<50) IU/L Alkaline Phosphatase (38-126) U/L Total Protein (6.3-8.2) g/dL Albumin (3.5-5.0) g/dL Globulin (1.7-4.1) g/dL Albumin/Globulin Ratio (1.0-2.8) Procalcitonin (<0.5) ng/mL Urine Color Red Urine Appearance Cloudy Urine pH 5.0 (4.5-8.0) Ur Specific [place] 1.025 (1.000-1.035) Urine Protein 3+ H (Negative) Urine Glucose (UA) Negative (Negative) g/dL Urine Ketones 1+ H (NEGATIVE) Urine Occult Blood 3+ H (Negative) Urine Nitrate Positive H (Negative) Urine Bilirubin Negative (NEGATIVE) Urine Urobilinogen 2.0 H (0.2) E.U./dL Ur Leukocyte Esterase 1+ H (NEGATIVE) Urine RBC >100/hpf H (0-5/HPF) Urine WBC 10-30/hpf H (0-5/HPF) Ur Squamous Epith Cells None seen (0-5/HPF) Urine Bacteria Many (>30) H (None) Ur Culture Indicated? Specimen cultured Vol Urine Centrifuged 10ml (spun) Chlamy pneumoniae PCR (Not Detect) Adenovirus (PCR) (Not Detect) B. pertussis DNA (PCR) (Not Detect) B.parapertussis DNA PCR (Not Detecte) Coronavirus OC43 (PCR) (Not Detect) Coronavirus HKU1 (PCR) (Not Detect) Coronavirus 229E (PCR) (Not Detect) SARS-CoV-2 (PCR) (Not Detecte) Coronavirus NL63 (PCR) (Not Detect) Human Metapneumovir PCR (Not Detect) Influenza Type A (PCR) (Not Detect) Influenza Type B (PCR) (Not Detect) M. pneumoniae (PCR) (Not Detect) Parainfluenza 1 (PCR) (Not Detect) Parainfluenza 2 (PCR) (Not Detect) Parainfluenza 3 (PCR) (Not Detect) Parainfluenza 4 (PCR) (Not Detect) RSV (PCR) (Not Detect) Entero/Rhino (PCR) (Not Detect) MDM Narrative Medical decision making narrative: Ill-appearing patient with rigors, severe chills 3 days after prostate biopsy. Blood cultures, broad-spectrum antibiotics ordered for coverage. Zosyn ordered for coverage of presumed anaerobic infection. Laboratory work reviewed: WBC count 9.3, hemoglobin 13.5, platelet count 155, lactic acid 4.5 (repeat 2.5), procalcitonin 40.9, sodium 133, potassium 3.7, creatinine 1.39, normal liver enzymes. Patient appears much improved. He no longer has rigors, he is breathing comfortably, able to rest. Still mildly tachycardic, however heart rate is downtrending and he reports feeling much better than when he 1st came in. Case discussed with patient's urologist Dr. Alonso, who stated that this is an uncommon but known side effect of prostate biopsies and he will see the patient in the hospital tomorrow. Agreed with antibiotics and hospitalization. Patient informed of lab results, recommendations from urology. He is amenable to admission at this time. Discharge Plan Departure Patient Disposition: Admitted As Inpatient Clinical Impression: Sepsis, Acute UTI Prescriptions: No Action levofloxacin 750 mg tablet 750 mg PO DAILY Qty: 3 0RF Rx Instructions: Take one tablet by mouth the day before the biopsy, the day of, and the day after the biopsy. famotidine [Acid Pad Extraction Tender (famotidine)] 10 mg tablet 10 mg PO DAILY multivitamin Tablet 1 tab PO DAILY acetaminophen 325 mg capsule 650 mg PO Q6H PRN atorvastatin 20 mg tablet 20 mg PO DAILY Referrals: Benita Gomes MD [Primary Care Provider] - Admit Date/Time: 09/26/24 15:16 Admit Provider: Penelope Galeas Stand Alone Forms: Patient Portal/API/Survey
--- NOTE | 2024-09-26 12:44 | PC.NURSE ---
EKG attempted, patient is rigorous with poor lead connection. Will attempt again.
[2024-09-26 12:56] LABS: Add Manual Diff / Slide Review NO; Basophils Absolute Auto 0 /uL (0-100); Eosinophils Absolute Auto 0 /uL (0-450); Eosinophils Percent Auto 0.1 % (2-4); Hematocrit 40.2 % (41-53); Hemoglobin 13.5 g/dL (13.5-17.5); Lymphocytes Absolute Auto 200 /uL (1100-4500); Lymphocytes Percent Auto 1.6 % (25-40); Mean Corpuscular HGB Conc 33.7 % (30-36); Mean Corpuscular Hemoglobin 31.1 PG (26-34); Mean Corpuscular Volume 92.5 fL (80-100); Monocytes Absolute Auto 100 /uL (0-900); Monocytes Percent Auto 1.2 % (3-14); Neutrophils Absolute Auto 9100 /uL (1500-7000); Neutrophils Percent Auto 97.1 % (50-75); Platelet Count 155 X10^3/uL (150-400); Red Blood Cell Count 4.34 X10^6/uL (4.5-5.9); Red Cell Distribution Width 13.9 % (11.6-14.8); White Blood Cell Count 9.3 X10^3/uL (4.5-11.0)
[2024-09-26 12:57] LABS: INR 1.3 (0.9-1.3); Prothrombin Time 14.5 SECONDS (9.4-12.5)
--- NOTE | 2024-09-26 13:02 | PC.NURSE ---
Prostate biopsy with dr arteaga recently. having hematuria, vaso-vagal episodes at home and bowel incontinence. Appears unwell. Pale, rigorous, delyaed cap refill, tachycardic, tachypneic. unable to obtain accurate SPO2. probe on ear. showing 88% with inadequate pleth. placed on 2L. AAOx3. blood cultures x2. lactate and blood banded. Dr Bartlett aware and assessed at bedside during triage.
[2024-09-26 13:07] LABS: Lactate (Lactic Acid) 4.5 mmol/L (0.7-2.1)
--- NOTE | 2024-09-26 13:20 | PC.NURSE ---
second set of blood cx drawn by lab [id number]
[2024-09-26] MEDS: SODIUM CHLORIDE 0.9% 1,000 ML 1000 ML IV ×2 (13:28→14:50)
[2024-09-26 13:40] LABS: Alanine Aminotransferase 45 IU/L (<50); Albumin 4.6 g/dL (3.5-5.0); Albumin Globulin Ratio 1.6 (1.0-2.8); Alkaline Phosphatase 98 U/L (38-126); Aspartate Aminotransferase 70 IU/L (17-59); BUN Creatinine Ratio 21.6 (6-22); Bilirubin Total 1.3 mg/dL (0.2-1.3); Blood Urea Nitrogen 30 mg/dL (9-20); Calcium 9.4 mg/dL (8.4-10.2); Carbon Dioxide 21 mmol/L (22-32); Chloride 97 mmol/L (98-107); Estimated Glomerular Filt Rate 54 mL/min (>60); Globulin 2.9 g/dL (1.7-4.1); Glucose 119 mg/dL (80-110); HEMOLYSIS 23 (0-50); Potassium 3.7 mmol/L (3.4-5.1); Sodium 133 mmol/L (137-145); Total Protein 7.5 g/dL (6.3-8.2)
[2024-09-26] MEDS: PIPERACILLIN/TAZO 4.5 GM in SODIUM CHLORIDE 0.9% 100 ML IV (13:52)
[2024-09-26 13:56] LABS: Procalcitonin 40.9 ng/mL (<0.5)
[2024-09-26 14:19] LABS: Adenovirus Not Detected (Not Detect); B. parapertussis Not Detected (Not Detecte); Bordetella pertussis Not Detected (Not Detect); Chlamydophila pneumoniae Not Detected (Not Detect); Coronavirus 229E Not Detected (Not Detect); Coronavirus HKU1 Not Detected (Not Detect); Coronavirus NL 63 Not Detected (Not Detect); Coronavirus OC43 Not Detected (Not Detect); Human Metapneumovirus Not Detected (Not Detect); Human Rhinovirus/Enterovirus Not Detected (Not Detect); Influenza A Not Detected (Not Detect); Influenza B Not Detected (Not Detect); Mycoplasma pneumoniae Not Detected (Not Detect); Parainfluenza Virus 1 Not Detected (Not Detect); Parainfluenza Virus 2 Not Detected (Not Detect); Parainfluenza Virus 3 Not Detected (Not Detect); Parainfluenza Virus 4 Not Detected (Not Detect); Respiratory Syncytial Virus Not Detected (Not Detect); SARS- CoV-2 Not Detected (Not Detecte)
[2024-09-26 14:21] LABS: Reflexed Lactate in 2 Hours Y
[2024-09-26] MEDS: ACETAMINOPHEN IV 1,000 MG/100 ML VIAL 400 MG IV (14:32)
[2024-09-26 14:46] LABS: Appearance Urine UA CLOUDY; Bilirubin Urine UA NEGATIVE (NEGATIVE); Color Urine UA RED; Glucose Urine UA NEGATIVE (Negative); Ketones Urine UA 1+ (NEGATIVE); Leukocyte Esterase Urine UA 1+ (NEGATIVE); Nitrite Urine UA POSITIVE (Negative); Occult Blood Urine UA 3+ (Negative); Protein Urine UA 3+ (Negative); Specific Gravity Urine UA 1.025 (1.000-1.035)
[2024-09-26 14:49] LABS: Bacteria Urine Many (>30); Culture Indicated Urine Specimen Cultured; RBC Urine >100/HPF (0-5/HPF); Squamous Epithelial Cell Urine None Seen (0-5/HPF); Urine Volume 10mL (spun); WBC Urine 10-30/HPF (0-5/HPF)
[2024-09-26 14:54] LABS: Lactate 2HR (Lactic Acid Rflx) 2.5 mmol/L (0.7-2.1)
[2024-09-26] MEDS: cefTRIAXone 1,000 MG in SODIUM CHLORIDE 0.9% 100 ML 200 MG IV (16:05)
--- NOTE | 2024-09-26 18:57 | PC.NURSE ---
pt admitted to room 205 from ED, alert and oriented x4, CC pt had BX of prostate on now here febrile, and incont of stool several times a day elevated labs noted bed, call light within reach friend here, up to BR with crutches and sba
[2024-09-26] MEDS: SODIUM CHLORIDE 0.9% 1,000 ML 100 ML IV (20:14)
--- NOTE | 2024-09-26 20:44 | PM.HP.1 ---
History of Present Illness History of Present Illness Date Patient Seen: 09/26/24 Time Patient Seen: 20:00 Chief complaint: Weakness Narrative: 69 y/o with PMH of enlarged prostate and prostate biopsy done 3 days ago, presented to ED with generalized weakness, fever, chills and evidence of UTI, MARIA ELENA and sepsis. Treated with IVFs and antibiotic in the ED and admitted with borderline hypotension and tachycardia. Denies abdominal, suprapubic or flank pain. Without dysuria and with small amount of expected hematuria. Had one episode of diarrhea before his arrival. [facility] Medical History (Updated 09/26/24 @ 22:01 by Bebeto Arellano MD) Elevated PSA BPH loc w/o ur obs/LUTS Tear of meniscus of left knee Right knee meniscal tear Carpal tunnel syndrome of right wrist Wears hearing aid in both ears Wears glasses Fibromyalgia GERD (gastroesophageal reflux disease) Arthritis Heart murmur History of pneumonia Social History household members: none Smoking Status: Never smoker alcohol intake: current Meds Home Medications and Allergies Home Medications Medication Instructions Recorded Confirmed Type famotidine 10 mg tablet (Acid 40 mg PO BID 01/15/23 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)) multivitamin 1 tab PO DAILY 01/15/23 09/26/24 History acetaminophen 325 mg capsule 650 mg PO Q6H PRN Pain (Scale 01/01/24 09/26/24 History Score 4-6) atorvastatin 20 mg tablet 20 mg PO DAILY 01/01/24 09/26/24 History Allergies Allergy/AdvReac Type Severity Reaction Status Date / Time amitriptyline AdvReac Mild slow Verified 09/23/24 11:46 stream, increased HR tramadol AdvReac Mild slow Verified 09/23/24 11:46 stream, increased HR naproxen AdvReac Unknown Verified 09/23/24 11:46 omeprazole AdvReac Unknown Verified 09/23/24 11:46 amlodipine AdvReac Verified 09/23/24 11:46 desipramine AdvReac increased Verified 09/23/24 11:46 HR, sleeplessness, N/D, VINES diclofenac AdvReac Verified 09/23/24 11:46 duloxetine AdvReac Verified 09/23/24 11:46 gabapentin AdvReac Verified 09/23/24 11:46 ranitidine AdvReac Verified 09/23/24 11:46 trazodone AdvReac Verified 09/23/24 11:46 Review of Systems Constitutional Comments: fever, chills, generalized weakness Cardiovascular Comments: w/o chest pain Respiratory Comments: w/o cough Gastrointestinal Comments: one episode of diarrhea earlier today Genitourinary Comments: w/o dysuria, flank or suprapubic pain ongoing hematuria - since the biopsy Hematologic/Lymphatic Comments: w/o melena or blood in the stool Exam Vital Signs (past 8 hours): - 09/26/24 12:50 09/26/24 13:00 09/26/24 13:14 Temperature 98.4 F Pulse Rate 147 H 145 H Respiratory Rate 30 H 42 H Blood Pressure 139/81 Pulse Oximetry Oxygen Delivery Method Oxygen Flow Rate Fraction of Inspired Oxygen 09/26/24 13:14 09/26/24 13:15 09/26/24 13:15 Temperature Pulse Rate 126 H 125 H Respiratory Rate 24 25 H Blood Pressure 155/95 H Pulse Oximetry 96 95 Oxygen Delivery Method Nasal Cannula Oxygen Flow Rate 2 5 Fraction of Inspired Oxygen 09/26/24 13:30 09/26/24 13:30 09/26/24 13:45 Temperature Pulse Rate 119 H Respiratory Rate 16 Blood Pressure 127/64 115/59 L Pulse Oximetry 98 Oxygen Delivery Method Nasal Cannula Oxygen Flow Rate 5 Fraction of Inspired Oxygen 09/26/24 13:45 09/26/24 14:00 09/26/24 14:00 Temperature Pulse Rate 115 H 113 H Respiratory Rate 17 10 L Blood Pressure 102/58 L Pulse Oximetry 98 99 Oxygen Delivery Method Nasal Cannula Oxygen Flow Rate 2 Fraction of Inspired Oxygen 09/26/24 14:15 09/26/24 14:15 09/26/24 14:30 Temperature Pulse Rate 109 H Respiratory Rate 25 H Blood Pressure 111/58 L 110/59 L Pulse Oximetry 98 Oxygen Delivery Method Nasal Cannula Oxygen Flow Rate 2 Fraction of Inspired Oxygen 09/26/24 14:30 09/26/24 14:42 09/26/24 14:42 Temperature 103.1 F H Pulse Rate 109 H 109 H Respiratory Rate 27 H 23 Blood Pressure 98/52 L Pulse Oximetry 97 97 Oxygen Delivery Method Nasal Cannula Oxygen Flow Rate 2 Fraction of Inspired Oxygen 09/26/24 14:45 09/26/24 14:45 09/26/24 14:57 Temperature Pulse Rate 108 H 106 H Respiratory Rate 21 24 Blood Pressure 87/45 L Pulse Oximetry 94 97 Oxygen Delivery Method Room Air Nasal Cannula Oxygen Flow Rate 2 Fraction of Inspired Oxygen 09/26/24 14:58 09/26/24 14:58 09/26/24 15:00 Temperature Pulse Rate 104 H 104 H Respiratory Rate 26 H Blood Pressure 94/52 L Pulse Oximetry 97 96 Oxygen Delivery Method Room Air Oxygen Flow Rate Fraction of Inspired Oxygen 09/26/24 15:00 09/26/24 15:15 09/26/24 15:16 Temperature Pulse Rate 100 H Respiratory Rate 15 Blood Pressure 94/51 L 94/52 L Pulse Oximetry 96 Oxygen Delivery Method Oxygen Flow Rate Fraction of Inspired Oxygen 09/26/24 15:16 09/26/24 15:18 09/26/24 15:18 Temperature Pulse Rate 100 H 100 H Respiratory Rate 23 20 Blood Pressure 94/55 L Pulse Oximetry 95 96 Oxygen Delivery Method Nasal Cannula Oxygen Flow Rate 2 Fraction of Inspired Oxygen 09/26/24 15:20 09/26/24 15:20 09/26/24 15:25 Temperature Pulse Rate 99 H Respiratory Rate 22 Blood Pressure 92/55 L 94/55 L Pulse Oximetry 96 Oxygen Delivery Method Nasal Cannula Oxygen Flow Rate 2 Fraction of Inspired Oxygen 09/26/24 15:25 09/26/24 15:30 09/26/24 15:30 Temperature Pulse Rate 99 H 100 H Respiratory Rate 22 24 Blood Pressure 92/53 L Pulse Oximetry 96 96 Oxygen Delivery Method Oxygen Flow Rate Fraction of Inspired Oxygen 09/26/24 15:35 09/26/24 15:35 09/26/24 15:40 Temperature Pulse Rate 99 H Respiratory Rate 25 H Blood Pressure 93/52 L 91/51 L Pulse Oximetry 97 Oxygen Delivery Method Oxygen Flow Rate Fraction of Inspired Oxygen 09/26/24 15:40 09/26/24 15:45 09/26/24 15:45 Temperature Pulse Rate 97 H 97 H Respiratory Rate 20 22 Blood Pressure 96/53 L Pulse Oximetry 97 96 Oxygen Delivery Method Oxygen Flow Rate Fraction of Inspired Oxygen 09/26/24 15:50 09/26/24 15:50 09/26/24 15:55 Temperature Pulse Rate 97 H 97 H Respiratory Rate 21 24 Blood Pressure 103/56 L Pulse Oximetry 97 97 Oxygen Delivery Method Nasal Cannula Oxygen Flow Rate 2 Fraction of Inspired Oxygen 09/26/24 15:55 09/26/24 16:00 09/26/24 16:00 Temperature Pulse Rate 96 H Respiratory Rate 20 Blood Pressure 97/53 L 96/52 L Pulse Oximetry 96 Oxygen Delivery Method Oxygen Flow Rate Fraction of Inspired Oxygen 09/26/24 16:05 09/26/24 16:05 09/26/24 16:10 Temperature Pulse Rate 96 H Respiratory Rate 26 H Blood Pressure 93/55 L 93/55 L Pulse Oximetry 97 Oxygen Delivery Method Nasal Cannula Oxygen Flow Rate 2 Fraction of Inspired Oxygen 09/26/24 16:10 09/26/24 16:15 09/26/24 16:15 Temperature Pulse Rate 94 H 92 H Respiratory Rate 21 23 Blood Pressure 95/54 L Pulse Oximetry 97 97 Oxygen Delivery Method Nasal Cannula Nasal Cannula Oxygen Flow Rate 2 2 Fraction of Inspired Oxygen 09/26/24 16:20 09/26/24 16:20 09/26/24 16:25 Temperature Pulse Rate 91 H Respiratory Rate 19 Blood Pressure 102/58 L 96/55 L Pulse Oximetry 96 Oxygen Delivery Method Nasal Cannula Oxygen Flow Rate 2 Fraction of Inspired Oxygen 09/26/24 16:25 09/26/24 16:30 09/26/24 16:30 Temperature Pulse Rate 91 H 92 H Respiratory Rate 20 20 Blood Pressure 99/56 L Pulse Oximetry 97 97 Oxygen Delivery Method Nasal Cannula Nasal Cannula Oxygen Flow Rate 2 2 Fraction of Inspired Oxygen 09/26/24 16:35 09/26/24 16:35 09/26/24 16:40 Temperature Pulse Rate 91 H 91 H Respiratory Rate 19 25 H Blood Pressure 102/57 L Pulse Oximetry 97 97 Oxygen Delivery Method Nasal Cannula Nasal Cannula Oxygen Flow Rate 2 2 Fraction of Inspired Oxygen 09/26/24 16:40 09/26/24 17:20 09/26/24 19:00 Temperature 98.7 F 99.1 F Pulse Rate 94 H 82 Respiratory Rate 20 20 Blood Pressure 105/59 L 102/63 96/58 L Pulse Oximetry 98 99 Oxygen Delivery Method Oxygen Flow Rate 2 1.5 Fraction of Inspired Oxygen 09/26/24 19:24 Temperature Pulse Rate 101 H Respiratory Rate 18 Blood Pressure Pulse Oximetry 98 Oxygen Delivery Method Nasal Cannula Oxygen Flow Rate 1.5 Fraction of Inspired Oxygen 26 Fraction of Inspired Oxygen 26 SaO2/FiO2 Ratio 376 Oxygen Delivery Method Nasal Cannula Oxygen Flow Rate 1.5 Const Other: in no distress, family at bedside HENDE Other: normocephalic Resp Other: normal respiratory effort Cardio Other: RRR GI Other: w/o abdominal distension or tenderness Skin Other: w/o rashes Extrem Other: w/o edema Psych Other: lucid, normal mood Objective ECG Impression: Sinus tachycardia 102 Labs 09/26/24 11:23 09/26/24 12:58 Labs: Laboratory Results - last 24 hr 09/26/24 09/26/24 09/26/24 11:23 12:58 13:00 WBC 9.3 RBC 4.34 L Hgb 13.5 Hct 40.2 L MCV 92.5 MCH 31.1 MCHC 33.7 RDW 13.9 Plt Count 155 Neut % (Auto) 97.1 H Lymph % (Auto) 1.6 L [place] % (Auto) 1.2 L Eos % (Auto) 0.1 L Baso % (Auto) 0.0 Neut # (Auto) 9100 H Lymph # (Auto) 200 L [place] # (Auto) 100 Eos # (Auto) 0 Baso # (Auto) 0 PT 14.5 H INR 1.3 Sodium 133 L Potassium 3.7 Chloride 97 L Carbon Dioxide 21 L BUN 30 H Creatinine 1.39 H Estimated GFR 54 L BUN/Creatinine Ratio 21.6 Glucose 119 H Lactate 4.5 H* Calcium 9.4 Total Bilirubin 1.3 AST 70 H ALT 45 Alkaline Phosphatase 98 Total Protein 7.5 Albumin 4.6 Globulin 2.9 Albumin/Globulin Ratio 1.6 Procalcitonin 40.9 H Urine Color Urine Appearance Urine pH Ur Specific [place] Urine Protein Urine Glucose (UA) Urine Ketones Urine Occult Blood Urine Nitrate Urine Bilirubin Urine Urobilinogen Ur Leukocyte Esterase Urine RBC Urine WBC Ur Squamous Epith Cells Urine Bacteria Ur Culture Indicated? Vol Urine Centrifuged Chlamy pneumoniae PCR Not detected Adenovirus (PCR) Not detected B. pertussis DNA (PCR) Not detected B.parapertussis DNA PCR Not detected Coronavirus OC43 (PCR) Not detected Coronavirus HKU1 (PCR) Not detected Coronavirus 229E (PCR) Not detected SARS-CoV-2 (PCR) Not detected Coronavirus NL63 (PCR) Not detected Human Metapneumovir PCR Not detected Influenza Type A (PCR) Not detected Influenza Type B (PCR) Not detected M. pneumoniae (PCR) Not detected Parainfluenza 1 (PCR) Not detected Parainfluenza 2 (PCR) Not detected Parainfluenza 3 (PCR) Not detected Parainfluenza 4 (PCR) Not detected RSV (PCR) Not detected Entero/Rhino (PCR) Not detected 09/26/24 09/26/24 14:27 14:35 WBC RBC Hgb Hct MCV MCH MCHC RDW Plt Count Neut % (Auto) Lymph % (Auto) [place] % (Auto) Eos % (Auto) Baso % (Auto) Neut # (Auto) Lymph # (Auto) [place] # (Auto) Eos # (Auto) Baso # (Auto) PT INR Sodium Potassium Chloride Carbon Dioxide BUN Creatinine Estimated GFR BUN/Creatinine Ratio Glucose Lactate 2.5 H Calcium Total Bilirubin AST ALT Alkaline Phosphatase Total Protein Albumin Globulin Albumin/Globulin Ratio Procalcitonin Urine Color Red Urine Appearance Cloudy Urine pH 5.0 Ur Specific [place] 1.025 Urine Protein 3+ H Urine Glucose (UA) Negative Urine Ketones 1+ H Urine Occult Blood 3+ H Urine Nitrate Positive H Urine Bilirubin Negative Urine Urobilinogen 2.0 H Ur Leukocyte Esterase 1+ H Urine RBC >100/hpf H Urine WBC 10-30/hpf H Ur Squamous Epith Cells None seen Urine Bacteria Many (>30) H Ur Culture Indicated? Specimen cultured Vol Urine Centrifuged 10ml (spun) Chlamy pneumoniae PCR Adenovirus (PCR) B. pertussis DNA (PCR) B.parapertussis DNA PCR Coronavirus OC43 (PCR) Coronavirus HKU1 (PCR) Coronavirus 229E (PCR) SARS-CoV-2 (PCR) Coronavirus NL63 (PCR) Human Metapneumovir PCR Influenza Type A (PCR) Influenza Type B (PCR) M. pneumoniae (PCR) Parainfluenza 1 (PCR) Parainfluenza 2 (PCR) Parainfluenza 3 (PCR) Parainfluenza 4 (PCR) RSV (PCR) Entero/Rhino (PCR) Assessment & Plan Assessment and plan (1) Acute UTI: Status: Acute (2) Sepsis: Status: Acute (3) Enlarged prostate: Status: Acute (4) GERD (gastroesophageal reflux disease): Status: Acute (5) HLD (hyperlipidemia): Status: Acute Assessment & Plan narrative: UTI / Sepsis - Tien, IVFs - urology will consult in am - hall monitor Enlarged prostate - had biopsy 3 days ago - urology follow up - does not retain - ongoing, expected mild hematuria GERD - Pepcid HLD - statin at home DVT prophylaxis - SCDs Time-Based Coding :: [TOTAL MINUTES] spent with patient and on the chart (including review of chart, obtaining history, exam, reviewing outside data, placing orders, documenting exam and treatment plan, and counseling patient) on [DATE]. Quality VTE Deep Vein Thrombosis/Pulmonary Embolism Present on Admission: No
[2024-09-26] MEDS: FAMOTIDINE 20 MG TABLET 40 MG PO (21:05)
[2024-09-26 23:31] LABS: Acinetobacter calcoa-baumannii Not Detected (Not Detect); Bacteroides fragilis Not Detected (Not Detect); CTX-M Resistance Not Detected (Not Detect); Candida albicans Not Detected (Not Detect); Candida auris Not Detected (Not Detect); Candida glabrata Not Detected (Not Detect); Candida krusei Not Detected (Not Detect); Candida parapsilosis Not Detected (Not Detect); Candida tropicalis Not Detected (Not Detect); Cryptococcus neoformans/gatti Not Detected (Not Detect); Enterobacter cloacae complex Not Detected (Not Detect); Enterobacterales Detected (Not Detect); Enterococcus faecalis Not Detected (Not Detect); Enterococcus faecium Not Detected (Not Detect); Haemophilus influenzae Not Detected (Not Detect); IMP Resistance Not Detected (Not Detect); KPC Resistance Not Detected (Not Detect); Klebsiella aerogenes Not Detected (Not Detect); Listeria monocytogenes Not Detected (Not Detect); NDM Resistance Not Detected (Not Detect); Neisseria meningitidis Not Detected (Not Detect); OXA-48-like Resistance Not Detected (Not Detect); Proteus species Not Detected (Not Detect); Pseudomonas aeruginosa Not Detected (Not Detect); Salmonella species Not Detected (Not Detect); Serratia marcescens Not Detected (Not Detect); Staphylococcus epidermidis Not Detected (Not Detect); Staphylococcus lugdunensis Not Detected (Not Detect); Staphylococcus species Not Detected (Not Detect); Stenotrophomonas maltophilia Not Detected (Not Detect); Streptococcus agalactiae (Gr B Not Detected (Not Detect); Streptococcus pneumonia Not Detected (Not Detect); Streptococcus pyogenes (Gr A) Not Detected (Not Detect); Streptococcus species Not Detected (Not Detect); VIM Resistance Not Detected (Not Detect); mcr-1 Resistance Not Detected (Not Detect)
[2024-09-27 03:00] VITALS: BP 102/63; PULSE 88; RESP 18; TEMP 37.4; O2SAT 98
[2024-09-27 05:52] LABS: BUN Creatinine Ratio 25.7 (6-22); Blood Urea Nitrogen 28 mg/dL (9-20); Carbon Dioxide 23 mmol/L (22-32); Chloride 101 mmol/L (98-107); Estimated Glomerular Filt Rate > 60 mL/min (>60); Glucose 95 mg/dL (80-110); HEMOLYSIS < 15 (0-50); Potassium 3.4 mmol/L (3.4-5.1); Sodium 132 mmol/L (137-145)
[2024-09-27 06:04] LABS: Add Manual Diff / Slide Review NO; Basophils Absolute Auto 0 /uL (0-100); Basophils Percent Auto 0.6 % (0-2); Eosinophils Absolute Auto 0 /uL (0-450); Eosinophils Percent Auto 0.6 % (2-4); Hematocrit 41.5 % (41-53); Hemoglobin 14.1 g/dL (13.5-17.5); Lymphocytes Absolute Auto 200 /uL (1100-4500); Lymphocytes Percent Auto 4.3 % (25-40); Mean Corpuscular HGB Conc 33.9 % (30-36); Mean Corpuscular Volume 91.6 fL (80-100); Monocytes Absolute Auto 400 /uL (0-900); Monocytes Percent Auto 6.2 % (3-14); Neutrophils Absolute Auto 5100 /uL (1500-7000); Neutrophils Percent Auto 88.3 % (50-75); Platelet Count 68 X10^3/uL (150-400); Red Blood Cell Count 4.53 X10^6/uL (4.5-5.9); Red Cell Distribution Width 13.7 % (11.6-14.8); White Blood Cell Count 5.7 X10^3/uL (4.5-11.0)
[2024-09-27] MEDS: SODIUM CHLORIDE 0.9% 1,000 ML 100 ML IV ×2 (06:28→17:32)
[2024-09-27 07:00] VITALS: BP 106/61; PULSE 91; RESP 14; TEMP 37.3; O2SAT 97
--- NOTE | 2024-09-27 07:26 | P.PN_ITS ---
Subjective Subjective Interval history: From night doctor: 69 y/o with PMH of enlarged prostate and prostate biopsy done 3 days ago, presented to ED with generalized weakness, fever, chills and evidence of UTI, MARIA ELENA and sepsis. Treated with IVFs and antibiotic in the ED and admitted with borderline hypotension and tachycardia. Denies abdominal, suprapubic or flank pain. Without dysuria and with small amount of expected hematuria. Had one episode of diarrhea before his arrival. S: Feels much better today, less pressure in his bladder, less hematuria. He was not shaking anymore. He does have some generalized pain in his upper thighs bilaterally. He denies chest pain or dyspnea. His troponin was elevated to 3 this morning, he relates a recent admission to the hospital and which he had a minor heart attack and does not believe he had a angiogram. This admission was also complicated by acute kidney injury. He lives locally, and is a . Blood cx positive: 2/2 GNB. Exam Vital Signs (past 8 hours): - 09/26/24 23:40 09/27/24 03:00 Temperature 99.4 F Pulse Rate 88 Respiratory Rate 18 Blood Pressure 99/58 L 102/63 Pulse Oximetry 98 Oxygen Flow Rate 0 Fraction of Inspired Oxygen 26 SaO2/FiO2 Ratio 376 Oxygen Delivery Method Nasal Cannula Oxygen Flow Rate 0 Narrative Exam Narrative: NAD, alert and oriented. Fluent speech. Lungs are clear, normal rate and effort. Heart is regular, no murmur gallop or rub. Abdomen is soft, non distended. Extremities are free of edema. Objective Imaging Chest x-ray: Radiologist's impression: No acute cardiopulmonary abnormality is seen. Labs 09/27/24 05:27 09/27/24 05:27 Labs: Laboratory Results - last 24 hr 09/26/24 09/26/24 09/26/24 11:23 12:58 13:00 WBC 9.3 RBC 4.34 L Hgb 13.5 Hct 40.2 L MCV 92.5 MCH 31.1 MCHC 33.7 RDW 13.9 Plt Count 155 Neut % (Auto) 97.1 H Lymph % (Auto) 1.6 L [place] % (Auto) 1.2 L Eos % (Auto) 0.1 L Baso % (Auto) 0.0 Neut # (Auto) 9100 H Lymph # (Auto) 200 L [place] # (Auto) 100 Eos # (Auto) 0 Baso # (Auto) 0 PT 14.5 H INR 1.3 Sodium 133 L Potassium 3.7 Chloride 97 L Carbon Dioxide 21 L BUN 30 H Creatinine 1.39 H Estimated GFR 54 L BUN/Creatinine Ratio 21.6 Glucose 119 H Lactate 4.5 H* Calcium 9.4 Total Bilirubin 1.3 AST 70 H ALT 45 Alkaline Phosphatase 98 Total Protein 7.5 Albumin 4.6 Globulin 2.9 Albumin/Globulin Ratio 1.6 Procalcitonin 40.9 H Urine Color Urine Appearance Urine pH Ur Specific [place] Urine Protein Urine Glucose (UA) Urine Ketones Urine Occult Blood Urine Nitrate Urine Bilirubin Urine Urobilinogen Ur Leukocyte Esterase Urine RBC Urine WBC Ur Squamous Epith Cells Urine Bacteria Ur Culture Indicated? Vol Urine Centrifuged A.calcoaceticus-baumannii cmplx PCR Chlamy pneumoniae PCR Not detected Adenovirus (PCR) Not detected Bacteroides fragilis B. pertussis DNA (PCR) Not detected B.parapertussis DNA PCR Not detected Shameka albicans (PCR) Shameka auris (PCR) C. glabrata (PCR) C. krusei (PCR) C. parapsilosis (PCR) C. tropicalis (PCR) Coronavirus OC43 (PCR) Not detected Coronavirus HKU1 (PCR) Not detected Coronavirus 229E (PCR) Not detected SARS-CoV-2 (PCR) Not detected Coronavirus NL63 (PCR) Not detected C. neoform/gattii (PCR) Enterobacterales (PCR) E. cloacae complex PCR Enterococc faecalis PCR Enterococc faecium PCR E. coli (PCR) H. influenzae (PCR) Human Metapneumovir PCR Not detected Influenza Type A (PCR) Not detected Influenza Type B (PCR) Not detected Klebsiella aerogenes (PCR) Klebsiella oxytoca PCR Klebsiella pneumoniae List. monocytogenes PCR M. pneumoniae (PCR) Not detected N. meningitidis (PCR) Parainfluenza 1 (PCR) Not detected Parainfluenza 2 (PCR) Not detected Parainfluenza 3 (PCR) Not detected Parainfluenza 4 (PCR) Not detected Proteus species (PCR) RSV (PCR) Not detected Entero/Rhino (PCR) Not detected Salmonella spp. (PCR) Serratia marcescens PCR Staphylococcus sp PCR Staph aureus (PCR) mecA/C & MREJ Resist Gene mecA/C-Methicil Resis Gene mcr-1 Colistin Res Gene PCR Staph epidermidis (PCR) Staph lugdunensis PCR S. maltophilia (PCR) Streptococcus sp PCR Group A Strep (PCR) Strep agalactiae (PCR) Strep pneumoniae (PCR) P. aeruginosa (PCR) Tha/B-Vanco Res Genes blaIMP Car res Gene PCR KPC-Carbap Res Gene PCR blaNDM Car Res Gene PCR OXA-48 Carbapenem Resis Gene (PCR) blaVIM Car Res Gene PCR CTX-M Gene Resistance (PCR) 09/26/24 09/26/24 09/26/24 13:10 14:27 14:35 WBC RBC Hgb Hct MCV MCH MCHC RDW Plt Count Neut % (Auto) Lymph % (Auto) [place] % (Auto) Eos % (Auto) Baso % (Auto) Neut # (Auto) Lymph # (Auto) [place] # (Auto) Eos # (Auto) Baso # (Auto) PT INR Sodium Potassium Chloride Carbon Dioxide BUN Creatinine Estimated GFR BUN/Creatinine Ratio Glucose Lactate 2.5 H Calcium Total Bilirubin AST ALT Alkaline Phosphatase Total Protein Albumin Globulin Albumin/Globulin Ratio Procalcitonin Urine Color Red Urine Appearance Cloudy Urine pH 5.0 Ur Specific [place] 1.025 Urine Protein 3+ H Urine Glucose (UA) Negative Urine Ketones 1+ H Urine Occult Blood 3+ H Urine Nitrate Positive H Urine Bilirubin Negative Urine Urobilinogen 2.0 H Ur Leukocyte Esterase 1+ H Urine RBC >100/hpf H Urine WBC 10-30/hpf H Ur Squamous Epith Cells None seen Urine Bacteria Many (>30) H Ur Culture Indicated? Specimen cultured Vol Urine Centrifuged 10ml (spun) A.calcoaceticus-baumannii cmplx PCR Not detected Chlamy pneumoniae PCR Adenovirus (PCR) Bacteroides fragilis Not detected B. pertussis DNA (PCR) B.parapertussis DNA PCR Shameka albicans (PCR) Not detected Shameka auris (PCR) Not detected C. glabrata (PCR) Not detected C. krusei (PCR) Not detected C. parapsilosis (PCR) Not detected C. tropicalis (PCR) Not detected Coronavirus OC43 (PCR) Coronavirus HKU1 (PCR) Coronavirus 229E (PCR) SARS-CoV-2 (PCR) Coronavirus NL63 (PCR) C. neoform/gattii (PCR) Not detected Enterobacterales (PCR) Detected E. cloacae complex PCR Not detected Enterococc faecalis PCR Not detected Enterococc faecium PCR Not detected E. coli (PCR) Detected H. influenzae (PCR) Not detected Human Metapneumovir PCR Influenza Type A (PCR) Influenza Type B (PCR) Klebsiella aerogenes (PCR) Not detected Klebsiella oxytoca PCR Not detected Klebsiella pneumoniae Not detected List. monocytogenes PCR Not detected M. pneumoniae (PCR) N. meningitidis (PCR) Not detected Parainfluenza 1 (PCR) Parainfluenza 2 (PCR) Parainfluenza 3 (PCR) Parainfluenza 4 (PCR) Proteus species (PCR) Not detected RSV (PCR) Entero/Rhino (PCR) Salmonella spp. (PCR) Not detected Serratia marcescens PCR Not detected Staphylococcus sp PCR Not detected Staph aureus (PCR) Not detected mecA/C & MREJ Resist Gene Not applicable mecA/C-Methicil Resis Gene Not applicable mcr-1 Colistin Res Gene PCR Not detected Staph epidermidis (PCR) Not detected Staph lugdunensis PCR Not detected S. maltophilia (PCR) Not detected Streptococcus sp PCR Not detected Group A Strep (PCR) Not detected Strep agalactiae (PCR) Not detected Strep pneumoniae (PCR) Not detected P. aeruginosa (PCR) Not detected Tha/B-Vanco Res Genes Not applicable blaIMP Car res Gene PCR Not detected KPC-Carbap Res Gene PCR Not detected blaNDM Car Res Gene PCR Not detected OXA-48 Carbapenem Resis Gene (PCR) Not detected blaVIM Car Res Gene PCR Not detected CTX-M Gene Resistance (PCR) Not detected 09/27/24 05:27 WBC 5.7 RBC 4.53 Hgb 14.1 Hct 41.5 MCV 91.6 MCH 31.0 MCHC 33.9 RDW 13.7 Plt Count 68 L Neut % (Auto) 88.3 H Lymph % (Auto) 4.3 L [place] % (Auto) 6.2 Eos % (Auto) 0.6 L Baso % (Auto) 0.6 Neut # (Auto) 5100 Lymph # (Auto) 200 L [place] # (Auto) 400 Eos # (Auto) 0 Baso # (Auto) 0 PT INR Sodium 132 L Potassium 3.4 Chloride 101 Carbon Dioxide 23 BUN 28 H Creatinine 1.09 Estimated GFR > 60 BUN/Creatinine Ratio 25.7 H Glucose 95 Lactate Calcium 8.0 L Total Bilirubin AST ALT Alkaline Phosphatase Total Protein Albumin Globulin Albumin/Globulin Ratio Procalcitonin Urine Color Urine Appearance Urine pH Ur Specific [place] Urine Protein Urine Glucose (UA) Urine Ketones Urine Occult Blood Urine Nitrate Urine Bilirubin Urine Urobilinogen Ur Leukocyte Esterase Urine RBC Urine WBC Ur Squamous Epith Cells Urine Bacteria Ur Culture Indicated? Vol Urine Centrifuged A.calcoaceticus-baumannii cmplx PCR Chlamy pneumoniae PCR Adenovirus (PCR) Bacteroides fragilis B. pertussis DNA (PCR) B.parapertussis DNA PCR Shameka albicans (PCR) Shameka auris (PCR) C. glabrata (PCR) C. krusei (PCR) C. parapsilosis (PCR) C. tropicalis (PCR) Coronavirus OC43 (PCR) Coronavirus HKU1 (PCR) Coronavirus 229E (PCR) SARS-CoV-2 (PCR) Coronavirus NL63 (PCR) C. neoform/gattii (PCR) Enterobacterales (PCR) E. cloacae complex PCR Enterococc faecalis PCR Enterococc faecium PCR E. coli (PCR) H. influenzae (PCR) Human Metapneumovir PCR Influenza Type A (PCR) Influenza Type B (PCR) Klebsiella aerogenes (PCR) Klebsiella oxytoca PCR Klebsiella pneumoniae List. monocytogenes PCR M. pneumoniae (PCR) N. meningitidis (PCR) Parainfluenza 1 (PCR) Parainfluenza 2 (PCR) Parainfluenza 3 (PCR) Parainfluenza 4 (PCR) Proteus species (PCR) RSV (PCR) Entero/Rhino (PCR) Salmonella spp. (PCR) Serratia marcescens PCR Staphylococcus sp PCR Staph aureus (PCR) mecA/C & MREJ Resist Gene mecA/C-Methicil Resis Gene mcr-1 Colistin Res Gene PCR Staph epidermidis (PCR) Staph lugdunensis PCR S. maltophilia (PCR) Streptococcus sp PCR Group A Strep (PCR) Strep agalactiae (PCR) Strep pneumoniae (PCR) P. aeruginosa (PCR) Tha/B-Vanco Res Genes blaIMP Car res Gene PCR KPC-Carbap Res Gene PCR blaNDM Car Res Gene PCR OXA-48 Carbapenem Resis Gene (PCR) blaVIM Car Res Gene PCR CTX-M Gene Resistance (PCR) PFSH Medical History Elevated PSA BPH loc w/o ur obs/LUTS Tear of meniscus of left knee Right knee meniscal tear Carpal tunnel syndrome of right wrist Wears hearing aid in both ears Wears glasses Fibromyalgia GERD (gastroesophageal reflux disease) Arthritis Heart murmur History of pneumonia Social History household members: none Smoking Status: Never smoker alcohol intake: current Assessment & Plan Assessment & Plan narrative: 1. UTI, and GNB Bacteremia. 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 NSTEMI, new and active. 3. BPH with recent prostate biopsy last week - had biopsy 3 days ago - urology follow up - does not retain - ongoing, expected mild hematuria 4. GERD - Pepcid 5. HLD - statin at home 6. Lactic acidosis PLAN: -continue antibiotics (ceftriaxone) -follow blood and urine cultures (repeat blood cx tomorrow) -IVF and trend lactate. -trend troponin (3.0 this AM) -start aspirin, metoprolol, and increased dose of atorvastatin. We will hold Plavix given recent hematuria from biopsies. -2D echo to assess for wall motion abnormality. DVT prophylaxis - SCDs Time-Based Coding :: [TOTAL MINUTES] spent with patient and on the chart (including review of chart, obtaining history, exam, reviewing outside data, placing orders, documenting exam and treatment plan, and counseling patient) on [DATE]. Quality VTE Deep Vein Thrombosis/Pulmonary Embolism Present on Admission: No
[2024-09-27] MEDS: FAMOTIDINE 20 MG TABLET 40 MG PO (08:03)
[2024-09-27] MEDS: ENOXAPARIN 40 MG/0.4 ML SYRINGE SUBCUT (08:04)
[2024-09-27] MEDS: ATORVASTATIN 20 MG TABLET PO (08:04)
[2024-09-27 08:16] LABS: Lactate (Lactic Acid) 0.7 mmol/L (0.7-2.1)
[2024-09-27] MEDS: POTASSIUM CHLORIDE 20 MEQ TAB 40 MEQ PO (09:22)
[2024-09-27] MEDS: ASPIRIN EC 81 MG TABLET PO (09:23)
[2024-09-27] MEDS: ATORVASTATIN 20 MG TABLET 40 MG PO (09:23)
[2024-09-27] MEDS: METOPROLOL IR 25 MG TABLET 12.5 MG PO ×2 (09:23→20:45)
[2024-09-27] MEDS: ACETAMINOPHEN 325 MG TABLET 650 MG PO ×3 (09:30→20:46)
--- NOTE | 2024-09-27 10:08 | PM.CN.IH.1 ---
History of Present Illness Consult details Date Patient Seen: 09/27/24 Time Patient Seen: 09:55 Chief complaint: Weakness Reason for consult: Sepsis following TRUS prostate biopsy Narrative: 69 y/o M w/ h/o elevated PSA in the absence of a FH of prostate cancer who underwent a TRUS prostate biopsy on 23 Sep 2024. Unfortunately, he suffered from vasovagal syncope following his procedure and was evaluated in the ER and ultimately discharged home a few hours later. Beginning on 24 Sep 2024, he started to feel cold and was having shaking issues in addition to gross hematuria. These symptoms continued to worsen until the morning of 26 Sep 2024, at which time he was noted to have an elevated temperature at home and presented to ER for further evaluation. He was noted to be tachycardic and have a Tm of 103.1F. His WBC was 9.3, sCr 1.39 and his UA appeared consistent w/ a UTI. His BCx's x2 and his UCx are positive for GNB. He was ultimately admitted for IV antibiotics and further observation. Meds Home Medications and Allergies Home Medications Medication Instructions Recorded Confirmed Type famotidine 10 mg tablet (Acid 40 mg PO BID 01/15/23 09/26/24 History Supervisor Contact Lens (famotidine)) multivitamin 1 tab PO DAILY 01/15/23 09/26/24 History acetaminophen 325 mg capsule 650 mg PO Q6H PRN Pain (Scale 01/01/24 09/26/24 History Score 4-6) atorvastatin 20 mg tablet 20 mg PO DAILY 01/01/24 09/26/24 History Allergies Allergy/AdvReac Type Severity Reaction Status Date / Time amitriptyline AdvReac Mild slow Verified 09/23/24 11:46 stream, increased HR tramadol AdvReac Mild slow Verified 09/23/24 11:46 stream, increased HR naproxen AdvReac Unknown Verified 09/23/24 11:46 omeprazole AdvReac Unknown Verified 09/23/24 11:46 amlodipine AdvReac Verified 09/23/24 11:46 desipramine AdvReac increased Verified 09/23/24 11:46 HR, sleeplessness, N/D, VINES diclofenac AdvReac Verified 09/23/24 11:46 duloxetine AdvReac Verified 09/23/24 11:46 gabapentin AdvReac Verified 09/23/24 11:46 ranitidine AdvReac Verified 09/23/24 11:46 trazodone AdvReac Verified 09/23/24 11:46 Review of Systems Review of Systems Narrative: CONSTITUTIONAL: Denies weight loss. HEENT: Denies change in vision, hearing. RESP: Denies SOB, cough. CV: Denies palpations, CP. GI: Denies abdominal pain, nausea, vomiting, diarrhea. : Denies dysuria, inability to void. MSK: Denies myalgia, joint pain. SKIN: Denies rash, pruritus. NEURO: Denies headache, syncope. PSYCH: Denies recent change in mood, anxiety, depression. Exam Vital Signs (past 8 hours): - 09/27/24 03:00 09/27/24 07:00 Temperature 99.4 F 99.1 F Pulse Rate 88 91 H Respiratory Rate 18 14 Blood Pressure 102/63 106/61 Pulse Oximetry 98 97 Oxygen Flow Rate 0 0 Fraction of Inspired Oxygen 26 SaO2/FiO2 Ratio 376 Oxygen Delivery Method Nasal Cannula Oxygen Flow Rate 0 Narrative Exam Narrative: GEN: Alert and oriented X3. No acute distress. Well-nourished. EYES: PERRLA, EOMI. HENT: Moist mucus membranes, no scleral icterus, normal neck ROM. RESP: Unlabored breathing, equal rise and fall of chest bilaterally, no cyanosis appreciated. CV: No peripheral edema, unremarkable heart rate. ABD: Soft, non-tender, non-distended, no palpable masses. EXT: No edema, clubbing or cyanosis. SKIN: No rashes or lesions. NEURO: No focal neurologic deficits, CN II-XII grossly intact. PSYCH: Cooperative, appropriate mood and affect. Objective Labs 09/27/24 05:27 09/27/24 05:27 Labs: Laboratory Results - last 24 hr 09/26/24 09/26/24 09/26/24 11:23 12:58 13:00 WBC 9.3 RBC 4.34 L Hgb 13.5 Hct 40.2 L MCV 92.5 MCH 31.1 MCHC 33.7 RDW 13.9 Plt Count 155 Neut % (Auto) 97.1 H Lymph % (Auto) 1.6 L [place] % (Auto) 1.2 L Eos % (Auto) 0.1 L Baso % (Auto) 0.0 Neut # (Auto) 9100 H Lymph # (Auto) 200 L [place] # (Auto) 100 Eos # (Auto) 0 Baso # (Auto) 0 PT 14.5 H INR 1.3 Sodium 133 L Potassium 3.7 Chloride 97 L Carbon Dioxide 21 L BUN 30 H Creatinine 1.39 H Estimated GFR 54 L BUN/Creatinine Ratio 21.6 Glucose 119 H Lactate 4.5 H* Calcium 9.4 Total Bilirubin 1.3 AST 70 H ALT 45 Alkaline Phosphatase 98 Troponin I Total Protein 7.5 Albumin 4.6 Globulin 2.9 Albumin/Globulin Ratio 1.6 Procalcitonin 40.9 H Urine Color Urine Appearance Urine pH Ur Specific [place] Urine Protein Urine Glucose (UA) Urine Ketones Urine Occult Blood Urine Nitrate Urine Bilirubin Urine Urobilinogen Ur Leukocyte Esterase Urine RBC Urine WBC Ur Squamous Epith Cells Urine Bacteria Ur Culture Indicated? Vol Urine Centrifuged A.calcoaceticus-baumannii cmplx PCR Chlamy pneumoniae PCR Not detected Adenovirus (PCR) Not detected Bacteroides fragilis B. pertussis DNA (PCR) Not detected B.parapertussis DNA PCR Not detected Shameka albicans (PCR) Shameka auris (PCR) C. glabrata (PCR) C. krusei (PCR) C. parapsilosis (PCR) C. tropicalis (PCR) Coronavirus OC43 (PCR) Not detected Coronavirus HKU1 (PCR) Not detected Coronavirus 229E (PCR) Not detected SARS-CoV-2 (PCR) Not detected Coronavirus NL63 (PCR) Not detected C. neoform/gattii (PCR) Enterobacterales (PCR) E. cloacae complex PCR Enterococc faecalis PCR Enterococc faecium PCR E. coli (PCR) H. influenzae (PCR) Human Metapneumovir PCR Not detected Influenza Type A (PCR) Not detected Influenza Type B (PCR) Not detected Klebsiella aerogenes (PCR) Klebsiella oxytoca PCR Klebsiella pneumoniae List. monocytogenes PCR M. pneumoniae (PCR) Not detected N. meningitidis (PCR) Parainfluenza 1 (PCR) Not detected Parainfluenza 2 (PCR) Not detected Parainfluenza 3 (PCR) Not detected Parainfluenza 4 (PCR) Not detected Proteus species (PCR) RSV (PCR) Not detected Entero/Rhino (PCR) Not detected Salmonella spp. (PCR) Serratia marcescens PCR Staphylococcus sp PCR Staph aureus (PCR) mecA/C & MREJ Resist Gene mecA/C-Methicil Resis Gene mcr-1 Colistin Res Gene PCR Staph epidermidis (PCR) Staph lugdunensis PCR S. maltophilia (PCR) Streptococcus sp PCR Group A Strep (PCR) Strep agalactiae (PCR) Strep pneumoniae (PCR) P. aeruginosa (PCR) Tha/B-Vanco Res Genes blaIMP Car res Gene PCR KPC-Carbap Res Gene PCR blaNDM Car Res Gene PCR OXA-48 Carbapenem Resis Gene (PCR) blaVIM Car Res Gene PCR CTX-M Gene Resistance (PCR) 09/26/24 09/26/24 09/26/24 13:10 14:27 14:35 WBC RBC Hgb Hct MCV MCH MCHC RDW Plt Count Neut % (Auto) Lymph % (Auto) [place] % (Auto) Eos % (Auto) Baso % (Auto) Neut # (Auto) Lymph # (Auto) [place] # (Auto) Eos # (Auto) Baso # (Auto) PT INR Sodium Potassium Chloride Carbon Dioxide BUN Creatinine Estimated GFR BUN/Creatinine Ratio Glucose Lactate 2.5 H Calcium Total Bilirubin AST ALT Alkaline Phosphatase Troponin I Total Protein Albumin Globulin Albumin/Globulin Ratio Procalcitonin Urine Color Red Urine Appearance Cloudy Urine pH 5.0 Ur Specific [place] 1.025 Urine Protein 3+ H Urine Glucose (UA) Negative Urine Ketones 1+ H Urine Occult Blood 3+ H Urine Nitrate Positive H Urine Bilirubin Negative Urine Urobilinogen 2.0 H Ur Leukocyte Esterase 1+ H Urine RBC >100/hpf H Urine WBC 10-30/hpf H Ur Squamous Epith Cells None seen Urine Bacteria Many (>30) H Ur Culture Indicated? Specimen cultured Vol Urine Centrifuged 10ml (spun) A.calcoaceticus-baumannii cmplx PCR Not detected Chlamy pneumoniae PCR Adenovirus (PCR) Bacteroides fragilis Not detected B. pertussis DNA (PCR) B.parapertussis DNA PCR Shameka albicans (PCR) Not detected Shameka auris (PCR) Not detected C. glabrata (PCR) Not detected C. krusei (PCR) Not detected C. parapsilosis (PCR) Not detected C. tropicalis (PCR) Not detected Coronavirus OC43 (PCR) Coronavirus HKU1 (PCR) Coronavirus 229E (PCR) SARS-CoV-2 (PCR) Coronavirus NL63 (PCR) C. neoform/gattii (PCR) Not detected Enterobacterales (PCR) Detected E. cloacae complex PCR Not detected Enterococc faecalis PCR Not detected Enterococc faecium PCR Not detected E. coli (PCR) Detected H. influenzae (PCR) Not detected Human Metapneumovir PCR Influenza Type A (PCR) Influenza Type B (PCR) Klebsiella aerogenes (PCR) Not detected Klebsiella oxytoca PCR Not detected Klebsiella pneumoniae Not detected List. monocytogenes PCR Not detected M. pneumoniae (PCR) N. meningitidis (PCR) Not detected Parainfluenza 1 (PCR) Parainfluenza 2 (PCR) Parainfluenza 3 (PCR) Parainfluenza 4 (PCR) Proteus species (PCR) Not detected RSV (PCR) Entero/Rhino (PCR) Salmonella spp. (PCR) Not detected Serratia marcescens PCR Not detected Staphylococcus sp PCR Not detected Staph aureus (PCR) Not detected mecA/C & MREJ Resist Gene Not applicable mecA/C-Methicil Resis Gene Not applicable mcr-1 Colistin Res Gene PCR Not detected Staph epidermidis (PCR) Not detected Staph lugdunensis PCR Not detected S. maltophilia (PCR) Not detected Streptococcus sp PCR Not detected Group A Strep (PCR) Not detected Strep agalactiae (PCR) Not detected Strep pneumoniae (PCR) Not detected P. aeruginosa (PCR) Not detected Tha/B-Vanco Res Genes Not applicable blaIMP Car res Gene PCR Not detected KPC-Carbap Res Gene PCR Not detected blaNDM Car Res Gene PCR Not detected OXA-48 Carbapenem Resis Gene (PCR) Not detected blaVIM Car Res Gene PCR Not detected CTX-M Gene Resistance (PCR) Not detected 09/27/24 09/27/24 05:27 07:56 WBC 5.7 RBC 4.53 Hgb 14.1 Hct 41.5 MCV 91.6 MCH 31.0 MCHC 33.9 RDW 13.7 Plt Count 68 L Neut % (Auto) 88.3 H Lymph % (Auto) 4.3 L [place] % (Auto) 6.2 Eos % (Auto) 0.6 L Baso % (Auto) 0.6 Neut # (Auto) 5100 Lymph # (Auto) 200 L [place] # (Auto) 400 Eos # (Auto) 0 Baso # (Auto) 0 PT INR Sodium 132 L Potassium 3.4 Chloride 101 Carbon Dioxide 23 BUN 28 H Creatinine 1.09 Estimated GFR > 60 BUN/Creatinine Ratio 25.7 H Glucose 95 Lactate 0.7 Calcium 8.0 L Total Bilirubin AST ALT Alkaline Phosphatase Troponin I 3.130 H* Total Protein Albumin Globulin Albumin/Globulin Ratio Procalcitonin Urine Color Urine Appearance Urine pH Ur Specific [place] Urine Protein Urine Glucose (UA) Urine Ketones Urine Occult Blood Urine Nitrate Urine Bilirubin Urine Urobilinogen Ur Leukocyte Esterase Urine RBC Urine WBC Ur Squamous Epith Cells Urine Bacteria Ur Culture Indicated? Vol Urine Centrifuged A.calcoaceticus-baumannii cmplx PCR Chlamy pneumoniae PCR Adenovirus (PCR) Bacteroides fragilis B. pertussis DNA (PCR) B.parapertussis DNA PCR Shameka albicans (PCR) Shameka auris (PCR) C. glabrata (PCR) C. krusei (PCR) C. parapsilosis (PCR) C. tropicalis (PCR) Coronavirus OC43 (PCR) Coronavirus HKU1 (PCR) Coronavirus 229E (PCR) SARS-CoV-2 (PCR) Coronavirus NL63 (PCR) C. neoform/gattii (PCR) Enterobacterales (PCR) E. cloacae complex PCR Enterococc faecalis PCR Enterococc faecium PCR E. coli (PCR) H. influenzae (PCR) Human Metapneumovir PCR Influenza Type A (PCR) Influenza Type B (PCR) Klebsiella aerogenes (PCR) Klebsiella oxytoca PCR Klebsiella pneumoniae List. monocytogenes PCR M. pneumoniae (PCR) N. meningitidis (PCR) Parainfluenza 1 (PCR) Parainfluenza 2 (PCR) Parainfluenza 3 (PCR) Parainfluenza 4 (PCR) Proteus species (PCR) RSV (PCR) Entero/Rhino (PCR) Salmonella spp. (PCR) Serratia marcescens PCR Staphylococcus sp PCR Staph aureus (PCR) mecA/C & MREJ Resist Gene mecA/C-Methicil Resis Gene mcr-1 Colistin Res Gene PCR Staph epidermidis (PCR) Staph lugdunensis PCR S. maltophilia (PCR) Streptococcus sp PCR Group A Strep (PCR) Strep agalactiae (PCR) Strep pneumoniae (PCR) P. aeruginosa (PCR) Tha/B-Vanco Res Genes blaIMP Car res Gene PCR KPC-Carbap Res Gene PCR blaNDM Car Res Gene PCR OXA-48 Carbapenem Resis Gene (PCR) blaVIM Car Res Gene PCR CTX-M Gene Resistance (PCR) [employer] Medical History Elevated PSA BPH loc w/o ur obs/LUTS Tear of meniscus of left knee Right knee meniscal tear Carpal tunnel syndrome of right wrist Wears hearing aid in both ears Wears glasses Fibromyalgia GERD (gastroesophageal reflux disease) Arthritis Heart murmur History of pneumonia Social History household members: none Tobacco & Substance Use Smoking Status: Never smoker alcohol intake: current Assessment & Plan Assessment and plan (1) Elevated PSA: Status: Acute Plan: 69 y/o M w/ a h/o elevated PSA in the absence of a FH of prostate cancer who underwent a TRUS prostate biopsy on 23 Sep 2024 and ultimately developed bacteremia. Currently admitted for IV antibiotics (Rocephin) and continued observation while his cultures result. Discussed at length that there is a 1-2% chance of this happening from a TRUS prostate biopsy despite use of bowel prep and 72 hours of antibiotics. - Agree w/ broad spectrum antibiotics - Recommend BCx and UCx directed oral antibiotics when this result is available - Appreciate assistance of hospitalist team w/ this patient - Will continue to follow along while admitted (2) Bacteremia: Status: Acute Plan: Please see plan above under elevated PSA. Time-Based Coding :: [TOTAL MINUTES] spent with patient and on the chart (including review of chart, obtaining history, exam, reviewing outside data, placing orders, documenting exam and treatment plan, and counseling patient) on [DATE]. PROFEE Charge Codes Inpatient or Observation consultation: 27521
--- NOTE | 2024-09-27 10:59 | DI.ECHO.S_ITS ---
[facility]---------+ [facility] : : [address] : : [place] : : [id number] : : Phone: [phone] Echocardiogram Report + + :Name: DAMARIS LUNA Study Date: 09/27/2024 Height: 72 in : :Hospital ReadingLocation: Weight: 185 lb : : Gender: Male BSA: 2.1 m2 : :: 1955 Age: 69 yrs BP: 106/61 mmHg: :Reason For Study: NSTEMI : :Ordering Physician: MESSI, : :HOMAR Queen Performed By: Ying Waddell : :Referring: HOMAR SWENSON : + + Interpretation Summary Severe LVH with normal LV size and systolic function. LVEF is 60-65% GLS with apical sparing pattern concerning for infiltrative cardiomyopathy. LA is mildly dilated. RV size and function appear preserved. Other findings as below. When compared to TTE report dated 09/04/22, progression of LVH is suspected. Consider outpatient cardiology evaluation to rule out infiltrative cardiomyopathy. Procedure: A two-dimensional transthoracic echocardiogram with color flow and Doppler was performed. The study quality was technically adequate. Comparison is made with the echocardiogram of 09/04/2022. The patient was in sinus rhythm with heart rates between 81-85 bpm during the exam. Left Ventricle: There is severe concentric left ventricular hypertrophy. The left ventricle is normal in size. The ejection fraction is estimated to be 60- 65%. Diastolic parameters suggest probable elevated filling pressures. Right Ventricle: The right ventricle is normal in size and function. Atria: The left atrium is mildly dilated. Right atrial size is normal. Injection of contrast documented no interatrial shunt. Mitral Valve: There is moderate mitral annular calcification. The mitral valve leaflets appear mildly thickened, but open well. There is mild mitral regurgitation. Aortic Valve: The aortic valve is trileaflet. The aortic valve opens well. There is no aortic valve stenosis. No aortic regurgitation is present. Tricuspid Valve: The tricuspid valve leaflets are thin and pliable. There is mild tricuspid regurgitation. The right ventricular systolic pressure is estimated to be at least 19 mmHg based on an estimated right atrial pressure of 3 mm Hg. Pulmonic Valve: The pulmonic valve leaflets are thin and pliable; valve motion is normal. There is no pulmonic valvular regurgitation. Great Vessels: The aortic root is normal size. The dimensions of the ascending aorta are normal. The IVC is of normal diameter and collapses greater than 50% with a sniff. This suggests a low right atrial pressure of 3 mm Hg. Pericardium/ Pleura There is no pericardial effusion. There is no pleural effusion. MMode/2D Measurements & Calculations LVIDd: 4.3 cm LVOT diam: 2.3 cm LVIDs: 3.1 cm Ao root diam: 3.3 cm FS: 27.7 % asc Aorta Diam: 3.1 cm EPSS: 0.42 cm Ao Arch Diam (Prox Trans): 2.9 cm IVSd: 1.5 cm LVPWd: 1.3 cm LV torres. diameter/BSA (cm/m^2): 2.1 LV sys. diameter/BSA (cm/m^2): 1.5 LA A2 area: 23.0 cm2 RA long axis: 5.0 cm LA A4 area: 26.7 cm2 RA area: 18.6 cm2 LA length (vol): 6.4 cm RA vol: 59.5 ml LA vol: 81.7 ml RA : 28.9 ml/m2 LA vol index: 39.6 ml/m2 IVC diam: 2.0 cm RVD1 (basal): 3.5 cm RVD2 (mid): 3.2 cm TAPSE: 1.6 cm Doppler Measurements & Calculations Ao V2 max: 102.0 cm/sec LVOT Max Edison: 86.1 cm/sec Ao V2 mean: 79.5 cm/sec LV V1 max P.0 mmHg Ao max P.2 mmHg LV V1 VTI: 16.9 cm Ao mean P.7 mmHg DANY(I,D): 3.3 cm2 Ao V2 VTI: 21.2 cm DANY(V,D): 3.5 cm2 sev ratio: 0.80 DANY indexed to BSA (cm^2/m^2): 1.6 MV E max edison: 89.5 cm/sec TR max edison: 196.8 cm/sec MV A max edison: 44.3 cm/sec TR max P.5 mmHg MV E/A: 2.0 PA V2 max: 89.0 cm/sec Med Peak E' Edison: 4.1 cm/sec PA V2 mean: 63.4 cm/sec E/E' med: 22.0 PA mean P.8 mmHg Lat Peak E' Edison: 7.5 cm/sec PA pr(Accel): 31.0 mmHg E/E' lat: 11.9 E/e' average: 16.9 MV dec time: 0.19 sec [facility] 69.9 ml Reading Physician:03:39 PM
[2024-09-27 11:00] VITALS: BP 103/62; PULSE 84; RESP 18; TEMP 37.2; O2SAT 98
[2024-09-27 15:00] VITALS: BP 104/65; PULSE 89; RESP 14; TEMP 36.9; O2SAT 95
--- NOTE | 2024-09-27 15:03 | CM.DANOTE ---
DCP Assessment Note pt is a 69yo M admitted for sepsis/UTI secondary to prostate biopsy done 3 days ago. getting IV abx now. PCP Benita Gomes Payer [facility] and self pay ASSOCIATE PRODUCT INTEGRITY ENGINEER reviewed EMR. Per provider in morning rounds, likely here a few days. Per RN, echo pending due to critical trope. ASSOCIATE PRODUCT INTEGRITY ENGINEER entered room and introduced self and role. pt resting in bed. pt lives alone in [facility] in [place], [facility] Yeni is his emergency contact ([phone]). pt uses crutches at baseline. otherwise is indep no DME at baseline, can drive. reports having lots of local friend/family support. denies hx of HH. reports he feels like he's mobilizing at his normal and does not need PT this admission. denies any CM needs at this time. P: anticipate home when medically stable, anticipate a few days. OP f/u likely recommended. No identified barriers to safe dc home at this time, CM team will continue to follow as needed SUELLEN Guadarrama Discharge Planning/Care Management CM Discharge Assessment Start: 09/27/24 15:02 Freq: Status: Active Protocol: Document 09/27/24 15:02 (Rec: 09/27/24 15:03 [id number]) Discharge Planning Assessment Assigned Slitter And Rewinder SUELLEN Dillard DPOA/Assigned Designee Name Yeni taj Contact Information [phone] Advance Directives? No History Provided By Patient Prior Living Arrangements House Household Members none Type of transporation used prior to Drives own vehicle admit Independent with ADL's Yes Is patient alert and oriented? Yes DME Already Rented / Owned Crutches Discharge Plan Home Transportation Arrangement family in P[place] Referrals Initiated None needed Whiteboard Updated in Patient Room with Yes name and ext. # of Slitter And Rewinder Review Status In Process Please Provide Date Initial DC 09/27/24 Assessment Was Performed Next Review Type Continued Stay Review
[2024-09-27] MEDS: cefTRIAXone 1,000 MG in SODIUM CHLORIDE 0.9% 100 ML 200 MG IV (15:50)
[2024-09-27] MEDS: FAMOTIDINE 20 MG TABLET PO (17:31)
[2024-09-27 20:08] VITALS: BP 130/86; PULSE 74; RESP 19; TEMP 36.7; O2SAT 99
[2024-09-27] MEDS: CALCIUM CARBONATE 500 MG TAB 1000 MG PO (20:46)
[2024-09-27 23:09] VITALS: BP 107/59; PULSE 89; RESP 18; TEMP 36.7; O2SAT 96
--- NOTE | 2024-09-27 23:16 | PC.NURSE ---
Patient is alert and oriented. Breath sounds CTA with RA sat of 99%. HRR w/telemetry reading of SR w/1st degree AVB + BBB. Denied nausea. Has been having loose yellow/brown stools so educated on side effects of antibiotics and potential for c-diff. Is voiding per urinal and urine is tea colored. Is able to turn himself in bed. Gets out of bed with use of crutches and provided SBA for safety; reports no history of falls. Is wearing bilateral calf SCD's. Complained of generalized pain and was medicated with tylenol; declines anything stronger. Also medicated with Tums per his request for history of heartburn; informed him he is now getting Pepcid BID. Fall risk score is high and bed alarm is activated.
[2024-09-28] MEDS: SODIUM CHLORIDE 0.9% 1,000 ML 100 ML IV ×3 (02:59→23:39)
[2024-09-28 03:00] VITALS: BP 110/60; PULSE 76; RESP 18; TEMP 37.1; O2SAT 99
[2024-09-28] MEDS: ACETAMINOPHEN 325 MG TABLET 650 MG PO ×3 (04:49→18:01)
[2024-09-28 06:17] LABS: Hemoglobin 10.6 g/dL (13.5-17.5); Mean Corpuscular HGB Conc 34.1 % (30-36); Mean Corpuscular Hemoglobin 31.3 PG (26-34); Mean Corpuscular Volume 91.8 fL (80-100); Platelet Count 105 X10^3/uL (150-400); Red Blood Cell Count 3.38 X10^6/uL (4.5-5.9); Red Cell Distribution Width 13.8 % (11.6-14.8)
[2024-09-28] MEDS: FAMOTIDINE 20 MG TABLET PO (06:25)
[2024-09-28 06:30] LABS: BUN Creatinine Ratio 25.8 (6-22); Blood Urea Nitrogen 24 mg/dL (9-20); Calcium 8.4 mg/dL (8.4-10.2); Carbon Dioxide 19 mmol/L (22-32); Chloride 103 mmol/L (98-107); Estimated Glomerular Filt Rate > 60 mL/min (>60); Glucose 107 mg/dL (80-110); HEMOLYSIS < 15 (0-50); Potassium 3.5 mmol/L (3.4-5.1); Sodium 130 mmol/L (137-145)
[2024-09-28 07:00] VITALS: BP 120/77; PULSE 97; RESP 24; TEMP 37.5; O2SAT 97
[2024-09-28] MEDS: ASPIRIN EC 81 MG TABLET PO (08:15)
[2024-09-28] MEDS: POTASSIUM CHLORIDE 20 MEQ TAB 40 MEQ PO (08:15)
[2024-09-28] MEDS: METOPROLOL IR 25 MG TABLET 12.5 MG PO (08:15)
[2024-09-28] MEDS: CALCIUM CARBONATE 500 MG TAB 1000 MG PO (08:15)
[2024-09-28 11:00] VITALS: BP 107/60; PULSE 95; RESP 12; TEMP 37.5; O2SAT 97
--- NOTE | 2024-09-28 11:59 | CM.DPNOTE ---
DCP note COMMERCIAL ARTIST reviewed EMR Per provider in morning rounds, cultures pending for final abx recs. likely dc in a day or two. Per RN, pt mobilizing at his baseline with crutches in room. no new CM needs identified at this time. COMMERCIAL ARTIST attempted to meet with pt in room, sleeping heavily (snoring), allowed to rest. P: anticipate home when medically stable, anticipate a few days. OP f/u likely recommended. No identified barriers to safe dc home at this time, CM team will continue to follow as needed SUELLEN Guadarrama
[2024-09-28 15:00] VITALS: BP 121/65; PULSE 93; RESP 14; TEMP 37.5; O2SAT 96
[2024-09-28] MEDS: FAMOTIDINE 20 MG TABLET 40 MG PO (16:07)
[2024-09-28] MEDS: cefTRIAXone 1,000 MG in SODIUM CHLORIDE 0.9% 100 ML 200 MG IV (16:07)
[2024-09-28 16:55] LABS: Clostridium Difficile Tox PCR Negative for C. diff (Negative)
--- NOTE | 2024-09-28 18:28 | P.CONS_ITS ---
History of Present Illness Consult details Date Patient Seen: 09/28/24 Time Patient Seen: 18:29 Chief complaint: Weakness Reason for consult: Sepsis following TRUS prostate biopsy Narrative: 69 y/o M w/ h/o elevated PSA in the absence of a FH of prostate cancer who underwent a TRUS prostate biopsy on 23 Sep 2024. Unfortunately, he suffered from vasovagal syncope following his procedure and was evaluated in the ER and ultimately discharged home a few hours later. Beginning on 24 Sep 2024, he started to feel cold and was having shaking issues in addition to gross hematuria. These symptoms continued to worsen until the morning of 26 Sep 2024, at which time he was noted to have an elevated temperature at home and presented to ER for further evaluation. He was noted to be tachycardic and have a Tm of 103.1F. His WBC was 9.3, sCr 1.39 and his UA appeared consistent w/ a UTI. His BCx's x2 and his UCx are positive for GNB. He was ultimately admitted for IV antibiotics and further observation. His symptoms have continued to improve. He no longer has chills or gross hematuria. His UCx is notable for E. Coli and his BCx's are still pending speciation and sensitivities. 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)) multivitamin 1 tab PO DAILY 01/15/23 09/26/24 History acetaminophen 325 mg capsule 650 mg PO Q6H PRN Pain (Scale 01/01/24 09/26/24 History Score 4-6) atorvastatin 20 mg tablet 20 mg PO DAILY 01/01/24 09/26/24 History Allergies Allergy/AdvReac Type Severity Reaction Status Date / Time amitriptyline AdvReac Mild slow Verified 09/23/24 11:46 stream, increased HR tramadol AdvReac Mild slow Verified 09/23/24 11:46 stream, increased HR naproxen AdvReac Unknown Verified 09/23/24 11:46 omeprazole AdvReac Unknown Verified 09/23/24 11:46 amlodipine AdvReac Verified 09/23/24 11:46 desipramine AdvReac increased Verified 09/23/24 11:46 HR, sleeplessness, N/D, VINES diclofenac AdvReac Verified 09/23/24 11:46 duloxetine AdvReac Verified 09/23/24 11:46 gabapentin AdvReac Verified 09/23/24 11:46 ranitidine AdvReac Verified 09/23/24 11:46 trazodone AdvReac Verified 09/23/24 11:46 Review of Systems Review of Systems Narrative: CONSTITUTIONAL: Denies weight loss. HEENT: Denies change in vision, hearing. RESP: Denies SOB, cough. CV: Denies palpations, CP. GI: Denies abdominal pain, nausea, vomiting, diarrhea. : Denies dysuria, hematuria, inability to void. MSK: Denies myalgia, joint pain. SKIN: Denies rash, pruritus. NEURO: Denies headache, syncope. PSYCH: Denies recent change in mood, anxiety, depression. Exam Vital Signs (past 8 hours): - 09/28/24 11:00 09/28/24 15:00 Temperature 99.5 F 99.5 F Pulse Rate 95 H 93 H Respiratory Rate 12 14 Blood Pressure 107/60 121/65 Pulse Oximetry 97 96 Oxygen Flow Rate 0 0 Fraction of Inspired Oxygen 26 SaO2/FiO2 Ratio 376 Oxygen Delivery Method Room Air Oxygen Flow Rate 0 Narrative Exam Narrative: GEN: Alert and oriented X3. No acute distress. Well-nourished. EYES: PERRLA, EOMI. HENT: Moist mucus membranes, no scleral icterus, normal neck ROM. RESP: Unlabored breathing, equal rise and fall of chest bilaterally, no cyanosis appreciated. CV: No peripheral edema, unremarkable heart rate. ABD: Soft, non-tender, non-distended, no palpable masses. EXT: No edema, clubbing or cyanosis. SKIN: No rashes or lesions. NEURO: No focal neurologic deficits, CN II-XII grossly intact. PSYCH: Cooperative, appropriate mood and affect. Objective Labs 09/28/24 05:58 09/28/24 05:58 Labs: Laboratory Results - last 24 hr 09/27/24 09/28/24 09/28/24 22:23 05:58 15:24 WBC 8.0 RBC 3.38 L Hgb 10.6 L Hct 31.0 L MCV 91.8 MCH 31.3 MCHC 34.1 RDW 13.8 Plt Count 105 L Sodium 130 L Potassium 3.5 Chloride 103 Carbon Dioxide 19 L BUN 24 H Creatinine 0.93 Estimated GFR > 60 BUN/Creatinine Ratio 25.8 H Glucose 107 Calcium 8.4 Troponin I 2.140 H* 2.200 H* C. difficile Tox (PCR) Negative for c. diff [facility] Medical History Elevated PSA BPH loc w/o ur obs/LUTS Tear of meniscus of left knee Right knee meniscal tear Carpal tunnel syndrome of right wrist Wears hearing aid in both ears Wears glasses Fibromyalgia GERD (gastroesophageal reflux disease) Arthritis Heart murmur History of pneumonia Social History household members: none Tobacco & Substance Use Smoking Status: Never smoker alcohol intake: current Assessment & Plan Assessment and plan (1) Elevated PSA: Status: Acute Plan: 69 y/o M w/ a h/o elevated PSA in the absence of a FH of prostate cancer who underwent a TRUS prostate biopsy on 23 Sep 2024 and ultimately developed bacteremia. Currently admitted for IV antibiotics (Rocephin). His UCx is notable for E. Coli and his BCx's are still pending speciation and sensitivities. Discussed at length that there is a 1-2% chance of this happening from a TRUS prostate biopsy despite use of bowel prep and 72 hours of antibiotics. - Recommend begin tailoring to UCx directed oral antibiotics (Bactrim DS BID, Omnicef BID for 14 days). - Will continue to follow-up on BCx results - Appreciate assistance of hospitalist team w/ this patient - Will continue to follow along while admitted (2) Bacteremia: Status: Acute Plan: Please see plan above under elevated PSA. Time-Based Coding :: [TOTAL MINUTES] spent with patient and on the chart (including review of chart, obtaining history, exam, reviewing outside data, placing orders, documenting exam and treatment plan, and counseling patient) on [DATE]. PROFEE Charge Codes Inpatient or Observation consultation: [id number]
[2024-09-28] MEDS: OXYCODONE IR 5 MG TABLET PO ×2 (18:58→23:40)
[2024-09-28 19:00] VITALS: BP 128/44; PULSE 91; RESP 18; TEMP 37.6; O2SAT 95
--- NOTE | 2024-09-28 19:33 | PM.PN.1 ---
Subjective Subjective Interval history: 69 M with sepsis and bacteremia due to recent prostate biopsy. Urine cultures with sensitive E. coli, blood cultures pending. Troponin overall improving. TTE showed evidence of possible amyloidosis but no focal wall motion abnormalities. Discussed with cardiology today and they recommended conservative medical management, no need for inpatient cardiac evaluation. Did not recommend heparin given TTE and hematuria. He reports improvement in his hematuria today, more pink. Exam Vital Signs (past 8 hours): - 09/28/24 15:00 Temperature 99.5 F Pulse Rate 93 H Respiratory Rate 14 Blood Pressure 121/65 Pulse Oximetry 96 Oxygen Flow Rate 0 Fraction of Inspired Oxygen 26 SaO2/FiO2 Ratio 376 Oxygen Delivery Method Room Air Oxygen Flow Rate 0 Narrative Exam Narrative: GEN: Alert and oriented X3. No acute distress. Well-nourished. EYES: PERRLA, EOMI. HENT: Moist mucus membranes, no scleral icterus, normal neck ROM. RESP: Unlabored breathing, equal rise and fall of chest bilaterally, no cyanosis appreciated. CV: No peripheral edema, unremarkable heart rate. ABD: Soft, non-tender, non-distended, no palpable masses. EXT: No edema, clubbing or cyanosis. SKIN: No rashes or lesions. NEURO: No focal neurologic deficits, CN II-XII grossly intact. PSYCH: Cooperative, appropriate mood and affect. Objective Labs 09/28/24 05:58 09/28/24 05:58 Labs: Laboratory Results - last 24 hr 09/27/24 09/28/24 09/28/24 22:23 05:58 15:24 WBC 8.0 RBC 3.38 L Hgb 10.6 L Hct 31.0 L MCV 91.8 MCH 31.3 MCHC 34.1 RDW 13.8 Plt Count 105 L Sodium 130 L Potassium 3.5 Chloride 103 Carbon Dioxide 19 L BUN 24 H Creatinine 0.93 Estimated GFR > 60 BUN/Creatinine Ratio 25.8 H Glucose 107 Calcium 8.4 Troponin I 2.140 H* 2.200 H* C. difficile Tox (PCR) Negative for c. diff [facility] Medical History Elevated PSA BPH loc w/o ur obs/LUTS Tear of meniscus of left knee Right knee meniscal tear Carpal tunnel syndrome of right wrist Wears hearing aid in both ears Wears glasses Fibromyalgia GERD (gastroesophageal reflux disease) Arthritis Heart murmur History of pneumonia Social History household members: none Smoking Status: Never smoker alcohol intake: current Assessment & Plan Assessment & Plan narrative: 1. Sepsis with MARIA ELENA, thrombocytopenia, acute respiratory failure with hypoxia, hypotension secondary to E. coli UTI as a complication of recent prostate biopsy. - continue 2g IV ceftriaxone daily - await blood culture results - will need 7-10 days of antibiotics after discharge, likely oral depending on final sensitivities. - consider PT/OT, however patient felt near his baseline today. - no leukocytosis on admit, Plt count improving today and MARIA ELENA now resolved. 2. NSTEMI or myocardial injury, new and active. With NSVT - tele with NSVT overnight, very short run with no symptoms. Started on beta kelsey therapy prior to today, will increase to 25 mg BID and change extended release succinate. - K is okay, continue to follow potassium and MG. - continue asa, statin therapy for medical management as well as beta kelsey noted above. 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 Discussed with semiconductor technician today given NSVT and elevated troponins over the phone. Given TTE without obvious evidence of ACS, recommended no heparin infusion and medical management with the above aspirin and statin and beta kelsey. - no need to continue to trend troponin unless symptoms change. - may also represent demand in setting of sepsis. 3. BPH with recent prostate biopsy last week - had biopsy 3 days ago - urology follow up as an outpatient - does not retain - ongoing, expected mild hematuria 4. GERD - Pepcid 5. HLD - statin at home 6. Lactic acidosis - Secondary to sepsis, improved. Code: Full, surrogate is patient's daughter. Dispo: likely home, timing in 1-2 days depending on response to antibiotics and sensitivity data Time-Based Coding :: [TOTAL MINUTES] spent with patient and on the chart (including review of chart, obtaining history, exam, reviewing outside data, placing orders, documenting exam and treatment plan, and counseling patient) on [DATE]. Quality VTE Deep Vein Thrombosis/Pulmonary Embolism Present on Admission: No
[2024-09-28 20:48] VITALS: BP 128/44; PULSE 91
[2024-09-28] MEDS: METOPROLOL ER 25 MG TABLET PO (20:48)
[2024-09-29 00:17] VITALS: BP 133/55; PULSE 98; RESP 17; TEMP 37.6; O2SAT 96
[2024-09-29 04:00] VITALS: BP 147/89; PULSE 104; RESP 19; TEMP 37; O2SAT 96
[2024-09-29] MEDS: FAMOTIDINE 20 MG TABLET 40 MG PO (05:50)
[2024-09-29 06:45] LABS: Add Manual Diff / Slide Review NO; Basophils Absolute Auto 0 /uL (0-100); Basophils Percent Auto 0.2 % (0-2); Eosinophils Absolute Auto 0 /uL (0-450); Eosinophils Percent Auto 0.6 % (2-4); Hematocrit 30.9 % (41-53); Hemoglobin 10.5 g/dL (13.5-17.5); Lymphocytes Absolute Auto 300 /uL (1100-4500); Lymphocytes Percent Auto 4.3 % (25-40); Mean Corpuscular HGB Conc 33.8 % (30-36); Mean Corpuscular Hemoglobin 30.9 PG (26-34); Mean Corpuscular Volume 91.4 fL (80-100); Monocytes Absolute Auto 700 /uL (0-900); Monocytes Percent Auto 10.2 % (3-14); Neutrophils Absolute Auto 5600 /uL (1500-7000); Neutrophils Percent Auto 84.7 % (50-75); Platelet Count 118 X10^3/uL (150-400); Red Blood Cell Count 3.38 X10^6/uL (4.5-5.9); Red Cell Distribution Width 13.9 % (11.6-14.8); White Blood Cell Count 6.6 X10^3/uL (4.5-11.0)
[2024-09-29 06:59] LABS: BUN Creatinine Ratio 16.3 (6-22); Blood Urea Nitrogen 15 mg/dL (9-20); Calcium 8.2 mg/dL (8.4-10.2); Carbon Dioxide 21 mmol/L (22-32); Chloride 101 mmol/L (98-107); Estimated Glomerular Filt Rate > 60 mL/min (>60); Glucose 107 mg/dL (80-110); HEMOLYSIS < 15 (0-50); Magnesium 1.4 mg/dL (1.6-2.3); Potassium 3.7 mmol/L (3.4-5.1); Sodium 130 mmol/L (137-145)
[2024-09-29 08:00] VITALS: BP 142/85; PULSE 94; RESP 16; TEMP 37; O2SAT 94
[2024-09-29] MEDS: ACETAMINOPHEN 325 MG TABLET 650 MG PO (08:05)
[2024-09-29] MEDS: ASPIRIN EC 81 MG TABLET PO (08:05)
[2024-09-29 08:06] VITALS: BP 147/89; PULSE 104
[2024-09-29] MEDS: METOPROLOL ER 25 MG TABLET PO (08:06)
[2024-09-29] MEDS: CALCIUM CARBONATE 500 MG TAB 1000 MG PO (08:07)
[2024-09-29] MEDS: MAGNESIUM SULFATE 2 GM/50 ML PIGGYBACK IV (08:07)
[2024-09-29] MEDS: SODIUM CHLORIDE 0.9% 1,000 ML 100 ML IV (09:52)
[2024-09-29] MEDS: cefTRIAXone 2,000 MG in SODIUM CHLORIDE 0.9% 100 ML 200 MG IV (10:26)
[2024-09-29 12:00] VITALS: BP 118/71; PULSE 82; RESP 18; TEMP 36.7; O2SAT 95
--- NOTE | 2024-09-29 12:41 | PM.DS.1 ---
History of Present Illness History of Present Illness Date Patient Seen: 09/29/24 Time Patient Seen: 12:42 Chief complaint: Weakness Narrative: 69 y/o with PMH of enlarged prostate and prostate biopsy done 3 days ago, presented to ED with generalized weakness, fever, chills and evidence of UTI, MARIA ELENA and sepsis. Treated with IVFs and antibiotic in the ED and admitted with borderline hypotension and tachycardia. Denies abdominal, suprapubic or flank pain. Without dysuria and with small amount of expected hematuria. Had one episode of diarrhea before his arrival. Discharge Providers Provider Date of admission: 09/26/24 15:16 Discharge Date: 09/29/24 Primary care physician: Benita Gomes MD Discharge provider: Clarence Ren DO Summary Hospital Course Discharge Diagnosis: 1. Sepsis with MARIA ELENA, thrombocytopenia, acute respiratory failure with hypoxia, hypotension secondary to E. coli UTI as a complication of recent prostate biopsy. 2. NSTEMI or myocardial injury, new and active. With NSVT 3. BPH with recent prostate biopsy last week 4. GERD 5. HLD 6. Lactic acidosis Hospital Course: This is a 69 year old male with PMH of BPH, GERD, HLD who was admitted with sepsis with the above organ dysfunction (see problem list) due to E. coli UTI and bacteremia after his recent prostate biopsy. Blood cultures grew E. coli resistant to fluroquinolones. After a couple of days of ceftriaxone, the patient was doing well. His WBC was normal and he was afebrile. He was tolerating a diet. He felt weak but did not feel like he would benefit from therapy evaluations after discussion with the patient so he was discharged home with transition to oral antibiotics. Urology service recommended a more prolonged course so 10 additional days of cefdinir were continued on discharge. Discussed with urologist on the day of discharge whom stated he would review biopsy results with the patient. Also of note on admission the patient had a troponin of 3. He had no chest pain, and given initial hematuria he was not treated with heparin. Echo showed a normal EF with no wall motion abnormalities. It did show signs of possible cardiac amyloid with longitudinal strain with apical sparing. Cardiology did not recommend inpatient evaluation at this time, but did recommend initial medication management with aspirin, statin and beta kelsey. Telemetry did show asymptomatic NSVT which improved with beta kelsey initiation. I did send an outpatient referral to diesel engine specialist, but he may need this to come from primary care. Recommend he follow up with cardiology for further cardiac evaluation after discharge. Time Spent with Patient Time spent: Greater than 30 minutes Exam Vital Signs (past 8 hours): - 09/29/24 08:00 09/29/24 08:06 09/29/24 12:00 Temperature 98.6 F 98.1 F Pulse Rate 94 H 104 H 82 Respiratory Rate 16 18 Blood Pressure 142/85 H 147/89 H 118/71 Pulse Oximetry 94 95 Oxygen Flow Rate 0 0 Fraction of Inspired Oxygen 26 SaO2/FiO2 Ratio 376 Oxygen Delivery Method Room Air Oxygen Flow Rate 0 Narrative Exam Narrative: GEN: Alert and oriented X3. No acute distress. Well-nourished. EYES: PERRLA, EOMI. HENT: Moist mucus membranes, no scleral icterus, normal neck ROM. RESP: Unlabored breathing, equal rise and fall of chest bilaterally, no cyanosis appreciated. CV: No peripheral edema, unremarkable heart rate. ABD: Soft, non-tender, non-distended, no palpable masses. EXT: No edema, clubbing or cyanosis. SKIN: No rashes or lesions. NEURO: No focal neurologic deficits, CN II-XII grossly intact. PSYCH: Cooperative, appropriate mood and affect. Objective Labs 09/29/24 06:05 09/29/24 06:05 Labs: Laboratory Results - last 24 hr 09/28/24 09/29/24 15:24 06:05 WBC 6.6 RBC 3.38 L Hgb 10.5 L Hct 30.9 L MCV 91.4 MCH 30.9 MCHC 33.8 RDW 13.9 Plt Count 118 L Neut % (Auto) 84.7 H Lymph % (Auto) 4.3 L Bell % (Auto) 10.2 Eos % (Auto) 0.6 L Baso % (Auto) 0.2 Neut # (Auto) 5600 Lymph # (Auto) 300 L Bell # (Auto) 700 Eos # (Auto) 0 Baso # (Auto) 0 Sodium 130 L Potassium 3.7 Chloride 101 Carbon Dioxide 21 L BUN 15 Creatinine 0.92 Estimated GFR > 60 BUN/Creatinine Ratio 16.3 Glucose 107 Calcium 8.2 L Magnesium 1.4 L C. difficile Tox (PCR) Negative for c. diff [facility] Medical History Elevated PSA BPH loc w/o ur obs/LUTS Tear of meniscus of left knee Right knee meniscal tear Carpal tunnel syndrome of right wrist Wears hearing aid in both ears Wears glasses Fibromyalgia GERD (gastroesophageal reflux disease) Arthritis Heart murmur History of pneumonia Social History household members: none Smoking Status: Never smoker alcohol intake: current Discharge Plan Discharge Plan Patient Disposition: Home Provider Discharge Comment: You were admitted to the hospital with a bacteria in your blood stream after prostate biopsy. Improved with antibiotics, now well enough to go home! Continue oral antibiotics at home, please complete the entire course of therapy. Also, you need to follow up with PCP for urgent cardiology referral after discharge. Discharge orders & Medications Prescriptions: New aspirin 81 mg Tablet,Delayed Release (Dr/Ec) 81 mg PO DAILY Qty: 90 0RF metoprolol succinate 25 mg Tablet Extended Release 24 Hr 25 mg PO BID 30 Days Qty: 60 0RF cefdinir 300 mg capsule 300 mg PO BID 10 Days Qty: 20 0RF Continued famotidine [Acid Airport Control Operator (famotidine)] 10 mg tablet 40 mg PO BID multivitamin Tablet 1 tab PO DAILY acetaminophen 325 mg capsule 650 mg PO Q6H PRN (Reason: Pain (Scale Score 4-6)) atorvastatin 20 mg tablet 20 mg PO DAILY Follow up/Referrals: Benita Gomes MD [Primary Care Provider] - Other Ambulatory Orders: Referral to: (Schedule) Timeframe: 2 Weeks Location: Determined by Patient Ordered By: Clarence Ren Diet/Activity/Treatments Diet: Diet as Tolerated and Low-sodium Activity: As tolerated, no restrictions. Visit Report/Discharge Packet Instructions: How to Use Antibiotics Wisely, DI for Bacteremia-Adult Stand Alone Forms: Stroke Signs & Symptoms, Patient Portal/API/Survey Discharge Data Primary Care Provider: Benita Gomes Quality VTE Deep Vein Thrombosis/Pulmonary Embolism Present on Admission: No
--- NOTE | 2024-09-29 13:53 | CM.DPNOTE ---
DCP Note AUCTIONEER ART reviewed EMR Per RN report, doing well today. H&H looks good. Per provider in morning rounds, likely dc today. new diagnosis of prostate cancer. will f/u with urology in OP setting. Pt left today prior to being seen by this AUCTIONEER ART. P: home today with OP f/u recommended. no CM needs. will continue to follow as needed SUELLEN Guadarrama
--- NOTE | 2024-09-29 18:30 | PM.CN.IH.1 ---
History of Present Illness Consult details Date Patient Seen: 09/29/24 Time Patient Seen: 08:00 Chief complaint: Weakness Reason for consult: Sepsis following TRUS prostate biopsy Narrative: 69 y/o M w/ h/o elevated PSA in the absence of a FH of prostate cancer who underwent a TRUS prostate biopsy on 23 Sep 2024. Unfortunately, he suffered from vasovagal syncope following his procedure and was evaluated in the ER and ultimately discharged home a few hours later. Beginning on 24 Sep 2024, he started to feel cold and was having shaking issues in addition to gross hematuria. These symptoms continued to worsen until the morning of 26 Sep 2024, at which time he was noted to have an elevated temperature at home and presented to ER for further evaluation. He was noted to be tachycardic and have a Tm of 103.1F. His WBC was 9.3, sCr 1.39 and his UA appeared consistent w/ a UTI. His BCx's x2 and his UCx are positive for E. Coli that is resistant to the Levaquin he was given periprocedurally. He was ultimately admitted for IV antibiotics and further observation. His symptoms have continued to improve. He no longer has chills or gross hematuria. 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)) multivitamin 1 tab PO DAILY 01/15/23 09/26/24 History acetaminophen 325 mg capsule 650 mg PO Q6H PRN Pain (Scale 01/01/24 09/26/24 History Score 4-6) atorvastatin 20 mg tablet 20 mg PO DAILY 01/01/24 09/26/24 History aspirin 81 mg tablet,delayed 81 mg PO DAILY #90 tabs 09/29/24 Rx release cefdinir 300 mg capsule 300 mg PO BID 10 days #20 caps 09/29/24 Rx metoprolol succinate 25 mg 25 mg PO BID 30 days #60 tabs 09/29/24 Rx tablet,extended release 24 hr Allergies Allergy/AdvReac Type Severity Reaction Status Date / Time amitriptyline AdvReac Mild slow Verified 09/23/24 11:46 stream, increased HR tramadol AdvReac Mild slow Verified 09/23/24 11:46 stream, increased HR naproxen AdvReac Unknown Verified 09/23/24 11:46 omeprazole AdvReac Unknown Verified 09/23/24 11:46 amlodipine AdvReac Verified 09/23/24 11:46 desipramine AdvReac increased Verified 09/23/24 11:46 HR, sleeplessness, N/D, VINES diclofenac AdvReac Verified 09/23/24 11:46 duloxetine AdvReac Verified 09/23/24 11:46 gabapentin AdvReac Verified 09/23/24 11:46 ranitidine AdvReac Verified 09/23/24 11:46 trazodone AdvReac Verified 09/23/24 11:46 Review of Systems Review of Systems Narrative: CONSTITUTIONAL: Denies weight loss. HEENT: Denies change in vision, hearing. RESP: Denies SOB, cough. CV: Denies palpations, CP. GI: Denies abdominal pain, nausea, vomiting, diarrhea. : Denies dysuria, hematuria, inability to void. MSK: Denies myalgia, joint pain. SKIN: Denies rash, pruritus. NEURO: Denies headache, syncope. PSYCH: Denies recent change in mood, anxiety, depression. Exam Vital Signs (past 8 hours): - 09/29/24 12:00 Temperature 98.1 F Pulse Rate 82 Respiratory Rate 18 Blood Pressure 118/71 Pulse Oximetry 95 Oxygen Flow Rate 0 Fraction of Inspired Oxygen 26 SaO2/FiO2 Ratio 376 Oxygen Delivery Method Room Air Oxygen Flow Rate 0 Narrative Exam Narrative: CONSTITUTIONAL: Denies weight loss. HEENT: Denies change in vision, hearing. RESP: Denies SOB, cough. CV: Denies palpations, CP. GI: Denies abdominal pain, nausea, vomiting, diarrhea. : Denies dysuria, hematuria, inability to void. MSK: Denies myalgia, joint pain. SKIN: Denies rash, pruritus. NEURO: Denies headache, syncope. PSYCH: Denies recent change in mood, anxiety, depression. Objective Labs 09/29/24 06:05 09/29/24 06:05 Labs: Laboratory Results - last 24 hr 09/29/24 06:05 WBC 6.6 RBC 3.38 L Hgb 10.5 L Hct 30.9 L MCV 91.4 MCH 30.9 MCHC 33.8 RDW 13.9 Plt Count 118 L Neut % (Auto) 84.7 H Lymph % (Auto) 4.3 L [place] % (Auto) 10.2 Eos % (Auto) 0.6 L Baso % (Auto) 0.2 Neut # (Auto) 5600 Lymph # (Auto) 300 L [place] # (Auto) 700 Eos # (Auto) 0 Baso # (Auto) 0 Sodium 130 L Potassium 3.7 Chloride 101 Carbon Dioxide 21 L BUN 15 Creatinine 0.92 Estimated GFR > 60 BUN/Creatinine Ratio 16.3 Glucose 107 Calcium 8.2 L Magnesium 1.4 L PFSH Medical History Elevated PSA BPH loc w/o ur obs/LUTS Tear of meniscus of left knee Right knee meniscal tear Carpal tunnel syndrome of right wrist Wears hearing aid in both ears Wears glasses Fibromyalgia GERD (gastroesophageal reflux disease) Arthritis Heart murmur History of pneumonia Social History household members: none Tobacco & Substance Use Smoking Status: Never smoker alcohol intake: current Assessment & Plan Assessment and plan (1) Elevated PSA: Status: Acute Plan: 69 y/o M w/ a h/o elevated PSA in the absence of a FH of prostate cancer who underwent a TRUS prostate biopsy on 23 Sep 2024 and ultimately developed bacteremia. Currently admitted for IV antibiotics (Rocephin). His UCx and BCx's are notable for E. Coli that are resistant to the Levaquin he was given periprocedurally. Discussed at length that there is a 1-2% chance of this happening from a TRUS prostate biopsy despite use of bowel prep and 72 hours of antibiotics. - Recommend begin tailoring to UCx directed oral antibiotics (Bactrim DS BID, Omnicef BID for 14 days). - Appreciate assistance of hospitalist team w/ this patient - Will continue to follow along while admitted (2) Bacteremia: Status: Acute Plan: Please see plan above. Time-Based Coding :: [TOTAL MINUTES] spent with patient and on the chart (including review of chart, obtaining history, exam, reviewing outside data, placing orders, documenting exam and treatment plan, and counseling patient) on [DATE]. PROFEE Charge Codes Inpatient or Observation consultation: [id number]
== END 2024-09-29 13:45 | disposition home or self-care (01) | DRG 862 ==
LOC: ED 13:22 → AC 15:16
PROVIDERS: Hospitalist; Internal Medicine; Admitting Provider Family Medicine; Emergency Provider Emergency Medicine; PCP Internal Medicine; Referring Provider Emergency Medicine; Visit Provider Family Medicine
DX: T81.44XA Sepsis following a procedure, initial encounter (principal); A41.51 Sepsis due to Escherichia coli [E. coli]; I21.4 Non-ST elevation (NSTEMI) myocardial infarction; R65.20 Severe sepsis without septic shock; J96.01 Acute respiratory failure with hypoxia; N39.0 Urinary tract infection, site not specified; E87.20 Acidosis, unspecified; N17.9 Acute kidney failure, unspecified; Z16.23 Resistance to quinolones and fluoroquinolones; E85.4 Organ-limited amyloidosis; I43 Cardiomyopathy in diseases classified elsewhere; N40.0 Benign prostatic hyperplasia without lower urinary tract symptoms; K21.9 Gastro-esophageal reflux disease without esophagitis; E78.5 Hyperlipidemia, unspecified; I25.2 Old myocardial infarction; R97.20 Elevated prostate specific antigen [PSA]; D69.6 Thrombocytopenia, unspecified; Y84.8 Other medical procedures as the cause of abnormal reaction of the patient, or of later complication, without mention of misadventure at the time of the procedure
CPT/HCPCS: 36415; 51798; 80048; 80053; 81001; 83605; 83735; 84145; 84484; 85025; 85027; 85610; 87040; 87077; 87086; 87154; 87186; 87493; 87633; 93005; 93306; 96361; 96365; 96367; 96375; 99285; A9270; J0134; J0696; J1650; J2543; J3475

== ENCOUNTER → 2024-10-18 11:04 | Outpatient (CLI) | payer OTHER, SELFPAY ==
[2024-09-26 15:16] VITALS: BMI 25.0
[2024-10-18 12:12] LABS: Appearance Urine UA SL CLOUDY; Bilirubin Urine UA NEGATIVE (NEGATIVE); Color Urine UA YELLOW; Glucose Urine UA NEGATIVE (Negative); Ketones Urine UA NEGATIVE (NEGATIVE); Leukocyte Esterase Urine UA TRACE (NEGATIVE); Nitrite Urine UA POSITIVE (Negative); Occult Blood Urine UA 3+ (Negative); Protein Urine UA 2+ (Negative); Specific Gravity Urine UA 1.025 (1.000-1.035); Urobilinogen Urine UA 0.2 E.U./dL (0.2); pH Urine UA 5.5 (4.5-8.0)
[2024-10-18 12:18] LABS: Bacteria Urine Moderate (10-30); Culture Indicated Urine Specimen Cultured; RBC Urine 10-30/HPF (0-5/HPF); Squamous Epithelial Cell Urine 1-5 /HPF (0-5/HPF); Urine Volume 10mL (spun); WBC Urine 5-10/HPF (0-5/HPF)
== END ==
PROVIDERS: PCP Internal Medicine; Referring Provider Urology; Visit Provider Urology
DX: N39.0 Urinary tract infection, site not specified (principal)
CPT/HCPCS: 81001; 87077; 87086; 87186

== ENCOUNTER → 2024-10-21 10:57 | Outpatient (CLI) | payer OTHER, SELFPAY ==
[2024-09-26 15:16] VITALS: BMI 25.0
[2024-10-21 12:40] LABS: Appearance Urine UA CLOUDY; Color Urine UA BROWN; Urine Volume 10mL (spun)
[2024-10-21 12:41] LABS: Bacteria Urine None Seen; Culture Indicated Urine Specimen Cultured; RBC Urine >100/HPF (0-5/HPF); Squamous Epithelial Cell Urine None Seen (0-5/HPF); WBC Urine >100/HPF (0-5/HPF)
== END ==
PROVIDERS: PCP Internal Medicine; Visit Provider Urology
DX: N40.0 Benign prostatic hyperplasia without lower urinary tract symptoms (principal)
CPT/HCPCS: 81001; 87086

== ENCOUNTER → 2024-10-26 13:19 | Outpatient (CLI) | payer OTHER, SELFPAY ==
[2024-09-26 15:16] VITALS: BMI 25.0
[2024-10-26 13:35] LABS: Appearance Urine UA CLEAR; Bilirubin Urine UA NEGATIVE (NEGATIVE); Color Urine UA YELLOW; Glucose Urine UA NEGATIVE (Negative); Ketones Urine UA TRACE (NEGATIVE); Leukocyte Esterase Urine UA NEGATIVE (NEGATIVE); Nitrite Urine UA NEGATIVE (Negative); Occult Blood Urine UA 3+ (Negative); Protein Urine UA 1+ (Negative); Specific Gravity Urine UA >=1.030 (1.000-1.035)
[2024-10-26 13:36] LABS: Urine Volume 10mL (spun)
[2024-10-26 13:38] LABS: Bacteria Urine None Seen; Culture Indicated Urine Cult Not Indicated; RBC Urine 5-10/HPF (0-5/HPF); Squamous Epithelial Cell Urine None Seen (0-5/HPF); WBC Urine None Seen (0-5/HPF)
== END ==
PROVIDERS: PCP Internal Medicine; Referring Provider Urology; Visit Provider Urology
DX: R78.81 Bacteremia (principal); N39.0 Urinary tract infection, site not specified
CPT/HCPCS: 81001

== ENCOUNTER → 2024-12-06 08:12 | Outpatient (CLI) | payer OTHER, SELFPAY ==
[2024-09-26 15:16] VITALS: BMI 25.0
[2024-12-06 09:52] LABS: Prostate Specific Antigen 8.66 ng/mL (0.10-4.00)
== END ==
PROVIDERS: Urology; PCP Internal Medicine; Referring Provider Internal Medicine; Visit Provider Internal Medicine
DX: C61 Malignant neoplasm of prostate (principal); I42.2 Other hypertrophic cardiomyopathy
CPT/HCPCS: 36415; 84153

== ENCOUNTER → 2025-02-25 10:13 | Outpatient (CLI) | payer OTHER, SELFPAY ==
[2024-09-26 15:16] VITALS: BMI 25.0
[2025-02-25 11:59] LABS: Prostate Specific Antigen 9.52 ng/mL (0.10-4.00)
== END ==
PROVIDERS: PCP Nurse Practitioner Family; Referring Provider Urology; Visit Provider Urology
DX: R97.20 Elevated prostate specific antigen [PSA] (principal)
CPT/HCPCS: 36415; 84153

== ENCOUNTER → 2025-06-13 11:50 | Outpatient (CLI) | payer OTHER, SELFPAY ==
[2024-09-26 15:16] VITALS: BMI 25.0
== END ==
PROVIDERS: PCP Nurse Practitioner Family; Referring Provider Nurse Practitioner Family; Visit Provider Internal Medicine
DX: I42.9 Cardiomyopathy, unspecified (principal)
CPT/HCPCS: 36415; 83883